=== PATIENT | female | born 1970 | race Caucasian/White ===

== ENCOUNTER 2020-11-18 12:36 | Outpatient (REF) | payer OTHER, SELFPAY ==
--- NOTE | ~2020-11-18 | XR_ITS ---
EXAMINATION: XR HAND, RIGHT XR HAND, LEFT CLINICAL INFORMATION: Heberden's nodes with arthropathy. COMPARISON: None TECHNIQUE: 3 views of each hand. FINDINGS: RIGHT HAND: 3 views of the right hand do not demonstrate any evidence of acute fracture or dislocation. There is some soft tissue swelling about the 5th proximal interphalangeal joint. Joint spaces are maintained. No erosive arthropathy is appreciated. LEFT HAND: 3 views of the left hand do not demonstrate any evidence of acute fracture or dislocation. Mild soft tissue swelling seen about the 2nd and 5th proximal interphalangeal joints. No erosive changes are evident. XR/XR hand LT min 3V IMPRESSION: No significant bony abnormality of the right or left hands. No evidence of erosive arthritides.
--- NOTE | ~2020-11-18 | XR_ITS ---
EXAMINATION: XR HAND, RIGHT XR HAND, LEFT CLINICAL INFORMATION: Heberden's nodes with arthropathy. COMPARISON: None TECHNIQUE: 3 views of each hand. FINDINGS: RIGHT HAND: 3 views of the right hand do not demonstrate any evidence of acute fracture or dislocation. There is some soft tissue swelling about the 5th proximal interphalangeal joint. Joint spaces are maintained. No erosive arthropathy is appreciated. LEFT HAND: 3 views of the left hand do not demonstrate any evidence of acute fracture or dislocation. Mild soft tissue swelling seen about the 2nd and 5th proximal interphalangeal joints. No erosive changes are evident. XR/XR hand RT min 3V IMPRESSION: No significant bony abnormality of the right or left hands. No evidence of erosive arthritides.
== END 2020-11-18 12:37 | disposition home or self-care (01) ==
LOC: HO.XRAY 12:36
PROVIDERS: PCP Nurse Practitioner; Visit Provider Nurse Practitioner
DX: M15.1 Heberden's nodes (with arthropathy) (principal)
CPT/HCPCS: 73130

== ENCOUNTER 2021-01-08 15:21 | Outpatient (REF) | payer OTHER, SELFPAY ==
--- NOTE | ~2021-01-08 | MM_ITS ---
EXAMINATION: MM SCREENING DIGITAL BREAST TOMOSYNTHESIS, BILATERAL CLINICAL INFORMATION: Screening. Asymptomatic. The lifetime risk of breast cancer based on the Tyrer-Cuzick Model is 6.0%. COMPARISON: Mammography: 07/10/2018 and studies dating back to 09/27/2010 TECHNIQUE: Digital breast tomosynthesis is performed in both the craniocaudal and mediolateral oblique views along with computer-aided detection (CAD). Synthesized 2D images are generated from the tomosynthesis. FINDINGS: There are scattered areas of fibroglandular density (ACR BI-RADS breast composition Category b). About the upper outer aspect of the right breast approximately 5 cm nipple there is a 4 x 3 mm well-circumscribed density without calcification or spiculation. About the lateral aspect of the right breast there is a grouping of circumscribed densities approximately 7 cm from the nipple. There is another circumscribed density about the upper outer aspect of the right breast approximately 4 cm from the nipple. There is a stable appearance of the left breast. MM/MM tomosynthesis screening BI IMPRESSION: Right breast densities for which spot compression film and ultrasound is recommended for further evaluation. ASSESSMENT: BI-RADS 0: Incomplete - Need Additional Imaging Evaluation RECOMMENDATION: 1. Additional views of the right breast. 2. Targeted ultrasound if warranted after review of the additional views. 3. Radiology department staff will contact the patient for additional imaging. This patient's information was entered into a reminder system with a target due date for their next mammogram.
== END 2021-01-08 15:22 | disposition home or self-care (01) ==
LOC: HO.MAMMO 15:21
PROVIDERS: PCP Internal Medicine; Visit Provider Internal Medicine
DX: Z12.31 Encounter for screening mammogram for malignant neoplasm of breast (principal)
CPT/HCPCS: 77063; 77067

== ENCOUNTER 2021-01-14 08:18 | Outpatient (REF) | payer OTHER, SELFPAY ==
--- NOTE | ~2021-01-14 | US_ITS ---
EXAMINATION: US DIAGNOSTIC ULTRASOUND BREAST, RIGHT CLINICAL INFORMATION: Right breast densities. COMPARISON: Mammography of same day as well as studies dating back to September 27, 2010. TECHNIQUE: Ultrasound of the breast is performed with real-time capps scale imaging and color Doppler. FINDINGS: Targeted right breast ultrasound demonstrates a grouping of hypoechoic well-circumscribed structures in a region of echogenic parenchyma with the appearance of possible fat necrosis. No distal sound shadowing is appreciated. This is located at approximately the 9-10 o'clock position, 8 cm from the nipple A second well-circumscribed hypoechoic lesion 11 o'clock position, 3 cm from the nipple appears to represent either a vessel or small cyst. A 6-month follow-up mammography and ultrasound are recommended. Results are provided to the patient at time of visit by the technologist. US/US breast RT limited IMPRESSION: Cluster of small circumscribed densities lateral aspect of the right breast has the appearance of fat necrosis. A 6-month diagnostic right breast mammography and ultrasound recommended. ASSESSMENT: BI-RADS 3: Probably Benign. RECOMMENDATION: Diagnostic mammography in 6 months. Diagnostic right breast ultrasound.
--- NOTE | ~2021-01-14 | MM_ITS ---
EXAMINATION: MM DIAGNOSTIC DIGITAL BREAST TOMOSYNTHESIS, RIGHT US RIGHT BREAST ULTRASOUND CLINICAL INFORMATION: Numerous small well-circumscribed densities. COMPARISON: Mammography: 01/08/2021 and studies dating back to 09/27/2010. TECHNIQUE: Digital breast tomosynthesis is performed. 2D images are generated from the tomosynthesis. The following views are obtained: Spot compression craniocaudal and mediolateral oblique projections. FINDINGS: There are scattered areas of fibroglandular density (ACR BI-RADS breast composition Category b). There are again noted to be a grouping of well-circumscribed densities about the upper outer aspect of the right breast with the largest measuring approximately 3 mm in diameter. The second more medial circumscribed density may represent a turn of vessel. Targeted right breast ultrasound demonstrates a grouping of hypoechoic well-circumscribed structures in a region of echogenic parenchyma with the appearance of possible fat necrosis. No distal sound shadowing is appreciated. This is located at approximately the 9-10 o'clock position, 8 cm from the nipple A second well-circumscribed hypoechoic lesion 11 o'clock position, 3 cm from the nipple appears to represent either a vessel or small cyst. A 6-month follow-up mammography and ultrasound are recommended. Results are provided to the patient at time of visit by the technologist. MM/MM tomosynthesis added views R IMPRESSION: Cluster of small circumscribed densities lateral aspect of the right breast has the appearance of fat necrosis. A 6-month diagnostic right breast mammography and ultrasound recommended. ASSESSMENT: BI-RADS 3: Probably Benign. RECOMMENDATION: Diagnostic mammography in 6 months. Diagnostic right breast ultrasound. This patient's information was entered into a reminder system with a target due date for their next mammogram.
== END 2021-01-14 08:19 | disposition home or self-care (01) ==
LOC: HO.MAMMO 08:18
PROVIDERS: Visit Provider Nurse Practitioner
DX: R92.2 Inconclusive mammogram (principal)
CPT/HCPCS: 76642; 77061; 77065

== ENCOUNTER 2021-07-14 12:45 | Outpatient (REF) | payer OTHER, SELFPAY ==
--- NOTE | ~2021-07-14 | MM_ITS ---
EXAMINATION: MM DIAGNOSTIC DIGITAL BREAST TOMOSYNTHESIS, RIGHT US TARGETED BREAST, RIGHT CLINICAL INFORMATION: Six-month follow up right breast densities possibly representing fat necrosis. The lifetime risk of breast cancer based on the Tyrer-Cuzick Model is 6%. COMPARISON: Mammography: 01/14/2021 and studies dating back to 09/27/2010. TECHNIQUE: Digital breast tomosynthesis is performed in both the craniocaudal and mediolateral oblique views along with computer-aided detection (CAD). Synthesized 2D images are generated from the tomosynthesis. Targeted right breast ultrasound upper outer aspect of the right breast. FINDINGS: There are scattered areas of fibroglandular density (ACR BI-RADS breast composition Category b). A few small circumscribed densities are again seen about the upper outer aspect of the right breast but which are less prominent than on prior study and largest one measuring 3 mm in diameter. No new abnormal dominant masses identified and no suspicious grouping of calcifications is seen. ULTRASOUND: Targeted right breast ultrasound was then performed in the upper outer quadrant and at the 8 cm from the nipple at 10 o'clock position. Approximately 3 cm from the nipple, there are 3 small lesions with hypoechoic central regions and hyperechoic outer rims. These appear similar to previous study without evidence of enlargement or aggressive change. No internal vascularity is present. These have the appearance of fat necrosis. Results are discussed with the patient at time of visit. MM/MM tomosynthesis diagnostic RT IMPRESSION: There are no significant changes from prior study. ASSESSMENT: BI-RADS 2: Benign. RECOMMENDATION: Routine annual mammography screening due in 12 months. This patient's information was entered into a reminder system with a target due date for their next mammogram.
--- NOTE | ~2021-07-14 | US_ITS ---
EXAMINATION: US DIAGNOSTIC ULTRASOUND BREAST, RIGHT CLINICAL INFORMATION: Six-month follow-up of a few small densities about the upper outer aspect of the right breast.. COMPARISON: Mammography of same day and mammography dating back to study of 09/27/2010. TECHNIQUE: Ultrasound of the breast is performed with real-time capps scale imaging and color Doppler. FINDINGS: Targeted right breast ultrasound was then performed in the upper outer quadrant and at the 9 o'clock position 8 cm from nipple and 10 o'clock position approximately 3 cm from nipple there are 3 small lesions with hypoechoic central regions and hyperechoic outer rims. These appear similar to previous study without evidence of enlargement or aggressive change. No internal vascularity is present. These have the appearance of fat necrosis. US/US breast RT limited IMPRESSION: There are no significant changes from prior study. ASSESSMENT: BI-RADS 2: Benign RECOMMENDATION: Routine annual mammography screening due in 12 months. Results were discussed with the patient at time of visit.
== END 2021-07-14 12:46 | disposition home or self-care (01) ==
LOC: HO.MAMMO 12:45
PROVIDERS: PCP Nurse Practitioner; Visit Provider Nurse Practitioner
DX: R92.2 Inconclusive mammogram (principal)
CPT/HCPCS: 76642; 77061; 77065

== ENCOUNTER → 2022-06-02 13:04 | Outpatient (BNVA) | payer OTHER, SELFPAY | PROVIDERS: PCP Nurse Practitioner; Visit Provider Surgery | DX: Z13.89 Encounter for screening for other disorder (principal) ==

== ENCOUNTER 2022-07-07 10:40 | Outpatient (REF) | payer OTHER, SELFPAY ==
[2022-07-07 11:05] VITALS: BMI 26.4
[2022-07-07 11:06] VITALS: BP 142/98; PULSE 83; RESP 16; TEMP 36.5; O2SAT 97
[2022-07-07 11:40] VITALS: BP 132/95; PULSE 86; RESP 16; O2SAT 97
--- NOTE | 2022-07-07 11:46 | W.PM.OPN ---
Operative Note Operative Note Date of Service: 07/07/22 Narrative: Preoperative diagnosis: sebaceous cyst left back Postoperative diagnosis:same Procedure: Excision of sebaceous cyst Surgeon:? Senthil Duvall MD Detective Bureau Chief: none Anesthesia:Local Indications for procedure:? 52-year-old female patient with a previous history of an infected sebaceous cyst of the back status post incision and drainage returning today for excision. Operative findings: sebaceous cyst of the midback approximately 2 cm diameter. Specimen:? Sebaceous cyst of mid Estimated blood loss: less than 2 mL Complications: none Procedure details: patient was brought to the minor surgery suite and placed in a prone position.? The site of surgery confirmed by the patient in the lower mid back.? After assuring informed consent, the skin was prepped with Betadine and draped in a sterile fashion.? Local anesthesia was then infiltrated around the lesion.? An elliptical incision oriented transversely was then created around the cyst including the previous incision and drainage site.? Incision was carried out through subcutaneous tissue and around the cyst wall.? The lesion was passed off the table and sent to pathology for further examination.? Hemostasis was assured using light pressure.? Deep subcutaneous tissue and dermis were then reapproximated using interrupted 3-0 Polysorb sutures.? Skin was closed using interrupted 3-0 Prolene sutures.? Sterile dressings consisting of 3 x 3 gauze and Tegaderm were then applied.? The patient tolerated the procedure well.? She was discharged to home in stable condition.
== END 2022-07-07 10:41 | disposition home or self-care (01) ==
LOC: HO.MS 10:40
PROVIDERS: Visit Provider Surgery
PROC: (CPT 11402; principal; 2022-07-07 11:20)
DX: L72.0 Epidermal cyst (principal)
CPT/HCPCS: 11402; 88304

== ENCOUNTER → 2022-07-15 10:46 | Outpatient (BNVA) | payer OTHER, SELFPAY | PROVIDERS: Visit Provider Surgery | DX: Z13.89 Encounter for screening for other disorder (principal) ==

== ENCOUNTER 2024-09-12 12:38 | Outpatient (REF) | payer BC, SELFPAY ==
--- OUTSIDE RECORDS SUMMARY | 2024-09-12 12:40 | XMS_ITS | Encounter Summary ---
Author Organization [employer] Address [address] [place] [id number] Care Team Providers Care Cable Splicer Assistant Name Role Phone Reyna Garrido MD Primary Care Pro vider Reason for Visit * Reason Onset Date Comments Appointment Request 02/16/2024 Encounter Details Date Type Department Care Team ([facility] Contact Info) Description 02/16/2024 Telephone [facility] [address] [place], [place] [phone] Reyna Garrido MD [address] [place], [place] [phone] Appointment Request Social History Tobacco Use Types Packs/Day Years Used Date Smoking Tobacco: Never Smokeless Tobacco: Never Housing Stability Answer Date Recorded What is your housing situation today? I have burak crenshaw 02/01/[address] you li ve. Do you have problems with any of the following? None of the above 02/01/2024 Food Insecurity Answer Date Recorded Within the past 12 months, y ou worried that your food would run out before you got money to buy more: Never True 02/01/2024 Within the past 12 months,th e food you bought just didn't last and you didn't have enough money to get more: Never True 01/2024 Transportation Answer Date Recorded In the past 12 months, has l ack of transportation kept you from medical appts, meetings, work or from getting things needed for daily living? No 02/01/2024 Utilities Answer Date Recorded In the past 12 months, has t he electric, gas, oil or water company threatened to shut off services in your home? No 02/01/2024 Internet Access Answer Date Recorded Internet Access Q1 Yes 02/01/2024 Internet Access Q2 Not on file 02/01/2024 Comments Unknown Sex and Gender Information Value Date Recorded Sex Assigned at Female 02/21/2022 10:15 AM EDT Legal Sex Female 10:15 AM EDT Gender Identity Female 02/21/2022 10:15 AM EDT Sexual Orientation Straight 02/21/2022 10 :15 AM EDT documented as of this encounter Miscellaneous Notes * Telephone Encounter - Иван Rosales - 02/16/2024 1:00 PM EDT Tc from pt requesting transfer pt appt but contract technical writer found no availability. Pt stated she has waited over 9 months for initial TP but due to insurance she wasn't able to attend. Please contact pt at [phone]. (Korean Speaker) documented in this encounter Plan of Treatment Upcoming Encounters Date Type Department Care Team (Late st Contact Info) Description 09/19/2024 9:30 AM EDT Procedure Visit [facility] [address] [place] [phone] Mary Shannon CNM [address] [place] [address] 10/17/2024 9:30 AM EDT Office Visit [facility] [address] [place] [phone] Reyna Garrido MD [address] [place] [phone] 03/27/2025 1:00 PM EST Office Visit [facility] ADULT DENTAL [address] [place] [phone] Ginette Florez documented as of this encounter Visit Diagnoses Not on filedocumented in this encounter Care Teams Cable Splicer Assistant Relationship Specialty Start Date End Date Reyna Garrido MD [address] [place] [phone] PCP - General Internal Medicine 12/12/22 documented as of this encounter
--- OUTSIDE RECORDS SUMMARY | 2024-09-12 12:40 | XMS_ITS | Encounter Summary ---
Author Organization [employer] Address [address] [place] [phone] Care Team Providers Care Auto Suspension And Steering Mechanic Name Role Phone Reyna Garrido MD Primary Care Pro vider Reason for Visit * Reason Onset Date Comments Medication Reaction 02/29/2024 Encounter Details Date Type Department Care Team ([facility] st Contact Info) Description 02/29/2024 Telephone [facility] MEDICINE [address] [place], [place] [phone] Reyna Garrido MD [address] [place], [place] [phone] Medication Reaction Social History Tobacco Use Types Packs/Day Years [...] encounter Miscellaneous Notes * Telephone Encounter - Adeline Lyles LPN - 02/29/2024 1:25 PM EST Medication pended to PCP. * Telephone Encounter - eCcil Finney - 02/29/2024 1:17 PM EST TC from pt requesting medication refill. Medications needing refill : lisinopril 10 MG tablet To be sent to: [facility] documented in this encounter Plan of Treatment Upcoming Encounters Date Type Department Care Team (Late st Contact Info) Description 09/19/2024 9:30 AM EDT Procedure Visit [facility] MEDICINE [address] [place] [phone] Mary Shannon CNM [address] [place] [address] 10/17/2024 9:30 AM EDT Office Visit [facility] MEDICINE [address] [place] [phone] Reyna Garrido MD [address] [place], [place] [phone] 03/27/2025 1:00 PM EST Office Visit [facility] ADULT DENTAL [address] [place] [phone] Ginette Florez documented as of this encounter Visit Diagnoses Not on filedocumented in this encounter Care Teams Auto Suspension And Steering Mechanic Relationship Specialty Start Date End Date Reyna Garrido MD [address] [place] [phone] PCP - General Internal Medicine 12/12/22 documented as of this encounter
--- OUTSIDE RECORDS SUMMARY | 2024-09-12 12:40 | XMS_ITS | Encounter Summary ---
Author Organization [employer] Address [address] [facility] [address] [place] [address] Care Team Providers Care Broadcast Chief Engineer Name Role Phone Reyna Garrido MD Primary Care Pro vider Reason for Visit * Reason Comments Med Refill Encounter Details Date Type Department Care Team (Late st Contact Info) Description 09/09/2024 Refill [facility] MEDICINE [address] [place], [place] [phone] Adeline Lea, [address] [place], [place] [phone] Social History Tobacco Use Types Packs/Day Years Used Date Smoking Tobacco: Never Smokeless Tobacco: Never Alcohol Use Standard Drinks/Week Comments Yes 0 (1 standard drink = 0.6 oz pur e alcohol) social Depression Answer Date Recorded Patient Health Questionnaire-9 Score 0 08/29/2024 Patient Health Questionnaire-9 Score 0 08/29/2024 Last PHQ-9: Questionnaire Data Not on file 0 08/29/2024 Housing Stability Answer Date Recorded What is [...] off services in your home? No 02/01/2024 Depression Answer Date Recorded Patient Health Questionnaire-2 Score 0 08/29/2024 Internet Access Answer Date Recorded Internet Access Q1 Yes 02/01/2024 Internet Access Q2 Not on file 02/01/2024 Comments Unknown Sex and Gender Information Value Date Recorded Sex Assigned at Female 02/21/2022 10:15 AM EDT Legal Sex Female 10:15 AM EDT Gender Identity Female 02/21/2022 10:15 AM EDT Sexual Orientation Straight 02/21/2022 10 :15 AM EDT documented as of this encounter Plan of Treatment Upcoming Encounters Date Type Department Care Team (Late st Contact Info) Description 09/19/2024 9:30 AM EDT Procedure Visit [facility] [address] [place] [phone] Mary Shannon CNM [address] [place] [phone] 10/17/2024 9:30 AM EDT Office Visit [facility] [address] [place] [phone] Reyna Garrido MD [address] [place] [phone] 03/27/2025 1:00 PM EST Office Visit [facility] ADULT DENTAL [address] [place] [phone] Ginette Floerz documented as of this encounter Visit Diagnoses Not on filedocumented in this encounter Additional Health Concerns Assessment Noted Time PHQ-9 Depression Total Score: 0 08/30/19 25 2:19 PM EDT documented as of this encounter Care Teams Broadcast Chief Engineer Relationship Specialty Start Date End Date Reyna Garrido MD [address] [place] [phone] PCP - General Internal Medicine 8/21/23 documented as of this encounter
--- OUTSIDE RECORDS SUMMARY | 2024-09-12 12:40 | XMS_ITS | Encounter Summary ---
Author Organization [employer] Address [address] [facility] [address] [place] [address] Care Team Providers Care Vendor Management Associate Name Role Phone Reyna Garrido MD Primary Care Pro vider Reason for Visit * Reason Onset Date Comments cancelled appt OS 01/29/2024 Encounter Details Date Type Department Care Team ([facility] st Contact Info) Description 01/29/2024 Telephone [facility] ADULT DENTAL [address] [place] [phone] Mir Harris, DMD [address] [place] [address] cancelled appt OS Social History Tobacco Use Types Packs/Day Years [...] encounter Miscellaneous Notes * Telephone Encounter - Sonia Ravinder - 01/29/2024 10:56 AM EDT Patient called in stating that she received a message that her appt for 10:[address] Harris has been cancelled. She is looking for clarification on cancellation of visit and if it will be need to berescheduled. Please reach out to patient DR documented in this encounter Plan of Treatment Upcoming Encounters Date Type Department Care Team (Late st Contact Info) Description 09/19/2024 9:30 AM EDT Procedure Visit [facility] MEDICINE [address] [place] [phone] Mary Shannon CNM [address] [place] [phone] 10/17/2024 9:30 AM EDT Office Visit [facility] MEDICINE [address] [place] [phone] Reyna Garrido MD [address] [place] [phone] 03/27/2025 1:00 PM EST Office Visit [facility] ADULT DENTAL [address] [place] [phone] Ginette Florez documented as of this encounter Visit Diagnoses Not on filedocumented in this encounter Care Teams Vendor Management Associate Relationship Specialty Start Date End Date Reyna Garrido MD [address] [place] [phone] PCP - General Internal Medicine 12/12/22 documented as of this encounter
--- OUTSIDE RECORDS SUMMARY | 2024-09-12 12:40 | XMS_ITS | Clinical Summary ---
Author Organization [employer] Address [address] [facility] 7[address] [place] [address] Care Team Providers Care Lidder Name Role Phone Reyna Garrido MD Primary Care Pro vider Allergies Active Allergy Reactions Criticality Noted Date Comments Mcgill Itching High 11/18/2020 Medications biotin 1 MG capsule Take by mouth. Active fexofenadine ODT (Lesa ODT) 30 MG disintegrating tablet Take 30 mg by mouth Once per day. Active lisinopril 10 MG tablet Take 1 tablet (10 mg) by mouth in the morning. 90 tablet 08/30/19 Active lisinopril 10 MG tablet TAKE 1 TABLET BY MOUTH EVERY MORNING 90 tablet 06/07/19 25 025 Discontinued(Re order (will not trigger notification to Pharmacy)) acetaminophen (Tylenol 8 Hour) 650 MG ER tabletIndications :Dental abscess Take 1 tablet (650 mg) by mouth every 8 (eight) hours if needed for mild pain for up to 30 doses. Do not crush, chew, or split. 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 Resolved Problems Problem Noted Date Diagnosed Date Resolved Date Dental abscess 06/19/2024 08/30/2024 Encounters Date Type Department Care Team Description 09/09/2024 Refill [facility] [address] [place] [address] VenuAdeline 08/29/2024 1:45 PM EDT Office Visit [facility] [address] [place] [address] Reyna Garrido MD Health care maintenance (Primary Dx); Dietary counseling; Exercise counseling; Annual physical exam; Breast cancer screening by mammogram; Colon cancer screening; Hypertension, unspecified type; PVC (premature ventricular contraction); Overweight (BMI 25.0-29.9); Essential hypertension; Abnormal EKG 08/29/2024 Travel 08/28/[address] [address] Reyna Garrido MD Chart Prep 08/15/2024 Patient Outreach [facility] [address] [place], [place] [phone] Reyna Garrido MD Pre-visit Planning (SDOH unable to reach [facility] ) 06/19/2024 9:00 AM EST Office Visit [facility] ADULT DENTAL [address] [place] [phone] Michael Moreland DDS Dental abscess (Primary Dx) from Last 3 Months Immunizations Immunization Administration Dates Next Due Tdap 11/18/2020 Zoster, Recombinant 11/18/2020 Family History Medical History Relation Name Comments bladder ca Brother valvular cardiopathy Brother Heart attack Father Colon cancer Mother Liver cancer Sister Relation Name Status Comments Brother Father Mother Sister Social History Tobacco Use Types Packs/Day Years Used Date Smoking Tobacco: Never Smokeless Tobacco: Never Tobacco Cessation:Counseling Given: Not Answered Alcohol Use Standard Drinks/Week Comments Yes 0 [...] Orientation Straight 02/21/2022 10 :15 AM EDT Last Filed Vital Signs Vital Sign Reading Time Taken Comments Blood Pressure 148/82 08/29/2024 2:17 PM EDT Pulse 83 08/29/2024 2:17 PM EDT Temperature 37.2 ??C (98.9 ??F) 08/29/2024 2:17 PM ED T Respiratory Rate 18 08/29/2024 2:17 PM EDT Oxygen Saturation 96% 08/29/2024 2:17 PM EDT Inhaled Oxygen Concentration - - Weight 71.7 kg (158 lb) 08/29/2024 2:17 PM EDT Height 162.6 cm (5' 4 ) 08/29/2024 2:17 PM EDT Body Mass Index 27.12 08/29/2024 2:17 PM EDT Plan of Treatment Upcoming Encounters Date Type Department Care Team (Late st Contact Info) Description 09/19/2024 9:30 AM EDT Procedure Visit [facility] [address] [place] [address] Mary Shannon CNM [address] [place] [address] 10/17/2024 9:30 AM EDT Office Visit [facility] [address] [place] [phone] Reyna Garrido MD [address] [place], [place] [phone] 03/27/2025 1:00 PM EST Office Visit [facility] ADULT DENTAL [address], [place] [phone] Ginette Florez Health Maintenance Due Date Last Done Comments CT Colonography 1970 Colonoscopy 1970 Colorectal Cancer Screening 1970 FIT DNA/Cologuard 1970 FIT 1970 FOBT 1970 Sigmoidoscopy 1970 Hepatitis B Vaccines (1 of 3 - 19+ 3-dose series) 1989 Pneumococcal Vaccine: 50+ Years (1 of 1 - PCV) 2020 Zoster Vaccines (2 of 2) 01/13/2021 11/18/2020 Mammogram 07/15/2023 07/14/2021, 01/14/2021, 07/12/2018 COVID-19 Vaccine (3 - 2023-2 5 season) 2023 09/22/2020, 08/24/2020 Influenza Vaccine (#1) 2023 Dental Oral Exam 08/20/2024 02/19/2024 Dental Prophylaxis 09/02/2024 03/04/2024 Pap Smear 10/28/2024 10/28/2021 SDOH Screening 01/31/2025 02/01/2024 Dental X-Ray: Bitewings 02/19/2025 02/19/20 24, 01/12/2015 Alcohol/Substance Use Screening 08/29/2025 08/29/2024 Depression Screening 08/29/2025 08/29/2024, 08/29/2024 Disability Screening 08/29/2025 08/29/2024 Tobacco Screening 08/29/2025 08/29/2024 Lipid Panel 11/18/2025 11/18/2020 Cervical Cancer Screening 10/28/2026 HPV/Cotest 10/28/2026 10/28/2021 Dental X-Ray: Full Mouth 02/19/2027 02/19/2024 DTaP/Tdap/Td Vaccines (2 - T d or Tdap) 11/18/2030 11/18/2020 RSV Patients and Patients Aged 60 years or older (1 - 1-dose 75+ series) 2045 HIV Screening Completed 11/18/2020 Hepatitis C Screening Completed 11/18/2020 HIB Vaccines Aged Out No longer eligi ble based on patient's age to complete this topic HPV Vaccines Aged Out No longer eligi ble based on patient's age to complete this topic Hepatitis A Vaccines Aged Out No long er eligible based on patient's age to complete this topic IPV Vaccines Aged Out No longer eligi ble based on patient's age to complete this topic Meningococcal B Vaccine Aged Out No l onger eligible based on patient's age to complete this topic Meningococcal Vaccine Aged Out No shanna frances eligible based on patient's age to complete this topic RSV under 20 months Aged Out No longe r eligible based on patient's age to complete this topic Rotavirus Vaccines Aged Out No longer eligible based on patient's age to complete this topic Procedures Procedure Name Priority Date/Time Associated Diagnosis Comments 14 EXTRACTION, ERUPTED TOOTH OR EXPOSED ROOT (ELEVATION/FORCEPS REMOVAL) Routine 06/19/2024 9:00 AM EST PROPHYLAXIS - ADULT Routine 03/04/2024 3 :00 PM EST Dental plaque Dental calculus INTRAORAL - COMPLETE SERIES OF RADIOGRAPHIC IMAGES Routine 02/19/2024 1:30 PM EDT Encounter for dental examination Need for full coverage dental crown COMPREHENSIVE ORAL EVALUATION - NEW OR ESTABLISHED PATIENT Routine 02/19/2024 1:30 PM EDT Encounter for dental examination Need for full coverage dental crown THINPREP IMAGING PAP AND HPV MRNA E6/E7, WITH CT/NG, TRICHOMONAS Routine 10/28/2021 2:27 PM EDT MAMMOGRAM GENERIC Routine 07/14/2021 1:0 6 PM EDT ZZZ HISTORICAL HEPATITIS C AB W/REFL TO HCV RNA, QN, PCR Routine 11/18/2020 11:51 AM EDT HIV 1/2 ANTIGEN/ANTIBODY, FOURTH GENERATION W/RFL Routine 11/18/2020 11:51 AM EDT LIPID PANEL, STANDARD Routine 11/18/2020 11:51 AM EDT from Last 3 Months or Most Recently Relevant to Health Maintenance Results * (ABNORMAL) THINPREP TIS PAP AND HPV mRNA E6/E7, CT/NG, TRICH (10/28/2021 2:27 PM EDT) Chlamydia trachomatis RNA, TMA, Urogenital NOT DETECTED NOT DETECTED [facility] Clinical Information: None given [facility] COMMENT SEE COMMENT [facility] Comment: The analytical performance characteristics of this assay, when used to test SurePath(TM) specimens have been determined by [facility]. The modifications have not been cleared or approved by the FDA. This assay has been validated pursuant to the CLIA regulations and is used for clinical purposes. ?? For additional information, please refer to https://education.SayNow/faq/OJK096 (This link is being provided for information/ educational purposes only.) ?? COMMENT SEE COMMENT [facility] Comment: EXPLANATORY NOTE: ? The Pap is a screening test for cervical cancer. It is ?? not a diagnostic test and is subject to false negative ?? and false positive results. It is most reliable when a ?? satisfactory sample, regularly obtained, is submitted ?? with relevant clinical findings and history, and when ?? the Pap result is evaluated along with historic and ?? current clinical information. ?? COMMENT: This Pap test has been evaluated with computer assisted technology. [employer] SYSTEM Bed Spring Maker: SEE COMMENT [facility] Comment: WAC, CT(ASCP) CT screening location: [address] ??[address] HPV nRNA E6/E7 Detected(A) Not Detected [facility] Comment: Methodology: Taper/Finisher-Mediated Amplification This assay detects E6/E7 viral messenger RNA (mRNA) from 14 high-risk HPV types (16,18,31,33,35,39,45,51,52,56,58,59,66,68). ? Cervical sources are required for HPV testing. If a vaginal source from a patient who has had a total hysterectomy with removal of cervix was ?? submitted, please contact the testing laboratory for alternative testing options. ?? For additional information, please refer to http://[employer]SayNow/faq/DEZ048g8 (This link if provided for information/ educational purposes only.) Interpretation/Re sult: Negative for intraepithelial lesion or malignancy. [facility] LMP: NONE GIVEN [facility] Neisseria gonorrhoeae RNA, TMA, Urogenital NOT DETECTED NOT DETECTED [facility] Prev. BX: NONE GIVEN [facility] Prev. PAP: NONE GIVEN [facility] Review Bed Spring Maker: SEE COMMENT [facility] Comment: DCR, CT(ASCP) CT screening location: [address] ??[id number] SOURCE: None given [facility] Statement Of Adequacy: SEE COMMENT [facility] Comment: Satisfactory for evaluation. Endocervical/transformation zone component present. Age and/or menstrual status not provided Trichomonas vaginalis, QL, TMA, PAP Vial NOT DETECTED NOT DETECTED [facility] Comment: The analytical performance characteristics of this assay have been determined by [facility]. The modifications have not been cleared or approved by the FDA. This assay has been validated pursuant to the CLIA regulations and is used for clinical purposes. ?? For additional information, please refer to http://[employer]SayNow/ faq/Trichomonastma (This link is being provided for information/ educational purposes only.) ?? 10/28/2021 2:27 PM EDT us Arminda Preciado NP LAB PATHOLOGY ORDERABLES Final Result [facility] [address] * Mammography Report 1 (07/14/2021 1:06 PM EDT) Anatomical Region Laterality Modality Breast Bilateral Mammography 07/14/2021 1:06 PM EDT Narrative 07/14/2021 7:27 PM EDT Refer to the Notes tab for result details [facility] Procedure: Mammography Report 1 Procedure Note Provider, MD Christian - 07/17/2022 Refer to the Notes tab for result details [facility] Procedure: Mammography Report 1 Arminda Preciado POLITICAL GEOGRAPHER IMG BI PROCEDURES Final Result * HEPATITIS C AB W/REFL TO HCV RNA, QN, PCR (11/18/2020 11:51 AM EDT) HEPATITIS C ANTIBODY NON-REACT BRIANNE NON-REACT BRIANNE [facility] INDEX 0.01 <1.00 [facility] Comment: ?? HCV antibody was non-reactive. There is no laboratory ?? evidence of HCV infection. ?? In most cases, no further action is required. However, if recent HCV exposure is suspected, a test for HCV RNA (test code 24790) is suggested. ?? For additional information please refer to http://[employer]SayNow/faq/GLR03e9 (This link is being provided for informational/ educational purposes only.) ?? 11/18/2020 11:5 1 AM EDT Arminda Preciado NP HISTORICAL/NON ORDERABLE LABS F inal Result [facility] [address] * HIV 1/2 ANTIGEN/ANTIBODY,FOURTH GENERATION W/RFL (11/18/2020 11:51 AM EDT) HIV-1/2 ANTIGEN AND ANTIBODIES, 4TH GENERATION W/ REFLEX NON-REACT BRIANNE NON-REACT BRIANNE [facility] Comment: HIV-1 antigen and HIV-1/HIV-2 antibodies were not detected. There is no laboratory evidence of HIV infection. ?? PLEASE NOTE: This information has been disclosed to you from records whose confidentiality may be protected by state law. ??If your state requires such protection, then the state law prohibits you from making any further disclosure of the information without the specific written consent of the person to whom it pertains, or as otherwise permitted by law. A general authorization for the release of medical or other information is NOT sufficient for this purpose. ? For additional information please refer to http://[employer]SayNow/faq/UWN265 (This link is being provided for informational/ educational purposes only.) ? The performance of this assay has not been clinically validated in patients less than 2 years old. ?? 11/18/2020 11:5 1 AM EDT us Arminda Preciado POLITICAL GEOGRAPHER LAB BLOOD ORDERABLES Final Resu lt Performing Organization Address City/[facility]/ZIP Co de Phone Number [facility] [address] [place] [address], * (ABNORMAL) LIPID PANEL, STANDARD (11/18/2020 11:51 AM EDT) Chol/HDLC Ratio 2.8 <5.0 (calc) [facility] Cholesterol, Total 199 <200 mg/dL [facility] HDL Cholesterol 70 > OR = 50 mg/dL [facility] LDL Cholesterol 111(H) mg/dL (calc) [facility] Comment: Reference range: <100 ?? Desirable range <100 mg/dL for primary prevention; ?? <70 mg/dL for patients with CHD or diabetic patients ?? with > or = 2 CHD risk factors. ?? LDL-C is now calculated using the Mando-Franz ?? calculation, which is a validated novel method providing ?? better accuracy than the Friedewald equation in the ?? estimation of LDL-C. ?? Mando BELLE et al. MARYSE. 2013;310(19): 0238-6662 ?? (http://education.Wis.dm.Nordic Neurostim/faq/FKY291) Non-HDL Cholesterol 129 <130 mg/dL (calc) [facility] Comment: For patients with diabetes plus 1 major ASCVD risk ?? factor, treating to a non-HDL-C goal of <100 mg/dL ?? (LDL-C of <70 mg/dL) is considered a therapeutic ?? option. Triglycerides 90 <150 mg/dL [facility] 11/18/2020 11:5 1 AM EDT us Arminda Preciado POLITICAL GEOGRAPHER LAB BLOOD ORDERABLES Final Resu lt Performing Organization Address City/[facility]/ZIP Co de Phone Number [facility] [address] [place] [address], [place] from Last 3 Months or Most Recently Relevant to Health Maintenance Insurance BCBS * Guarantor: Dolly Urena Account Type Relation to Patient Date of Phone Billing Address Personal/[place] [address] Care Teams Lidder Relationship Specialty Start Date End Date Reyna Garrido MD [address] [place] [phone] PCP - General Internal Medicine 12/12/22
== END 2024-09-12 12:39 | disposition home or self-care (01) ==
LOC: HO.MAMMO 12:38
PROVIDERS: PCP Student in an Organized Health Care Education/Training Program; Visit Provider Student in an Organized Health Care Education/Training Program
DX: Z12.31 Encounter for screening mammogram for malignant neoplasm of breast (principal)
CPT/HCPCS: 77063; 77067

== ENCOUNTER → 2024-09-12 13:00 | Outpatient (BNV) | payer BC, SELFPAY | PROVIDERS: PCP Student in an Organized Health Care Education/Training Program; Visit Provider Internal Medicine | DX: Z12.31 Encounter for screening mammogram for malignant neoplasm of breast (principal) | CPT/HCPCS: 77063; 77067 ==

== ENCOUNTER 2024-10-15 13:02 | Outpatient (REF) | payer BC, SELFPAY ==
[2024-10-15 16:18] LABS: Hematocrit 45.1 % (37.0-47.0); Hemoglobin 14.7 g/dl (12.0-16.0); Mean Corpuscular HGB Conc 32.6 g/dl (31.0-35.0); Mean Corpuscular Hemoglobin 29.8 pg (27.0-33.0); Mean Corpuscular Volume 91.3 fL (80.0-98.0); Mean Platelet Volume 10.9 fL (9.4-12.3); Platelet Count 264 X10*3/uL (160-400); Red Blood Count 4.94 X10*6/uL (4.20-5.50); Red Cell Distribution Width 11.9 % (11.0-16.0); White Blood Count 7.9 X10*3/uL (4.8-10.8)
[2024-10-15 16:29] LABS: Estimated Average Glucose 117 mg/dL; Hemoglobin A1C 146.4265 umol/L; Hemoglobin A1c % 5.7 % (<6.0); Total Hemoglobin (HGBA1C) 3803.5167 umol/L
[2024-10-15 16:39] LABS: Alanine Aminotransferase 35 U/L (0-31); Albumin Level 4.6 g/dL (3.5-5.0); Alkaline Phosphatase 57 U/L (39-117); Anion Gap 15 (12-20); Aspartate Amino Transferase 33 U/L (5-31); Bilirubin Total 0.6 mg/dL (0.0-1.0); Blood Urea Nitrogen 16 mg/dL (9-16); Calcium 10.5 mg/dL (8.4-10.2); Carbon Dioxide 26 mmol/L (22-29); Chloride 103 mmol/L (96-108); Cholesterol 216 mg/dL (<200); Estimated Glomerular Filt Rate > 60; Glucose Random 83 mg/dL (60-115); HDL Cholesterol 62 mg/dL (>40); LDL Cholesterol Calculated 140 mg/dL (<100); Potassium 3.7 mmol/L (3.3-5.1); Sodium 140 mmol/L (135-145); Total Protein 7.4 g/dL (6.5-8.0); Triglycerides 70 mg/dL (<150)
[2024-10-15 16:47] LABS: TSH reflex Free T4 1.16 uIU/mL (0.32-4.0)
[2024-10-15 17:16] LABS: Creatinine Urine 125.01 mg/dL; Microalbum/Creatinine Ratio Ur 9.5 ug/mg cr (<30)
[2024-10-16 08:16] LABS: HBS Num1 0.37 mIU/mL (0-7.99); HBc Num1 0.35 S/CO (0.00-0.79); HBsAGNum1 0.45 S/CO (0.00-0.99); HIV AB/AG Nonreactive (Nonreactive); HIV Num 1 0.07 S/CO (0.00-0.99); Hepatitis B Core Antibody Nonreactive (Nonreactive); Hepatitis B Surface Antigen Negative (Negative); ~HepC Num1 0.11 S/CO (0.00-0.79); ~Hepatitis B Surface Antibody NONREACTIVE (Nonreactive); ~Hepatitis C Antibody Nonreactive (Nonreactive)
[2024-10-16 08:28] LABS: Syphilis Screen Nonreactive (Nonreactive)
[2024-10-16 12:56] LABS: CT PCR NOT DETECTED (Not Detect.); NG PCR NOT DETECTED (Not Detect.)
== END 2024-10-15 13:03 | disposition home or self-care (01) ==
LOC: HO.HHCL 13:02
PROVIDERS: PCP Student in an Organized Health Care Education/Training Program; Visit Provider Student in an Organized Health Care Education/Training Program
DX: Z00.00 Encounter for general adult medical examination without abnormal findings (principal); Z13.0 Encounter for screening for diseases of the blood and blood-forming organs and certain disorders involving the immune mechanism; Z13.1 Encounter for screening for diabetes mellitus; Z13.220 Encounter for screening for lipoid disorders; Z13.29 Encounter for screening for other suspected endocrine disorder
CPT/HCPCS: 80053; 80061; 82043; 82570; 83036; 84443; 85027; 86704; 86706; 86780; 86803; 87340; 87389; 87491; 87591

== ENCOUNTER 2024-10-15 16:44 | Outpatient (REF) | payer BC, SELFPAY ==
[2024-10-18 15:03] LABS: HPV Genotype 16 Negative (Negative); HPV Genotype 18 Negative (Negative); HPV High Risk Negative (Negative)
== END 2024-10-15 16:45 | disposition home or self-care (01) ==
LOC: HO.HHCLNP 16:44
PROVIDERS: Visit Provider Advanced Practice Midwife
DX: Z12.4 Encounter for screening for malignant neoplasm of cervix (principal); Z11.51 Encounter for screening for human papillomavirus (HPV)
CPT/HCPCS: 87626; 88175

== ENCOUNTER 2024-12-10 10:15 | Outpatient (REF) | payer BC, SELFPAY ==
--- OUTSIDE RECORDS SUMMARY | 2024-12-10 17:54 | XMS_ITS | Encounter Summary ---
Author Organization [employer] Address [address] [place] [address] 7 [place] [address] Care Team Providers Care Agricultural Extension Officer Name Role Phone Reyna Garrido MD Primary Care Pro vider Encounter Details Date Type Department Care Team (Latest Contact Info) Description 10/15/2024 Results Follow-Up [facility] [address] [place] [phone] Reyna Garrido MD [address] [place] [address] Albumin, Random Urine W/Creatinine, CBC, Comprehensive Metabolic Panel, Additional followed-up results: 3 Social History Tobacco Use Types Packs/Day Years [...] Access Q2 Not on file 02/01/2024 Comments No Sex and Gender Information Value Date Recorded Sex Assigned at Female 02/21/2022 10:15 AM EDT Legal Sex Female 10:15 AM EDT Gender Identity Female 02/21/2022 10:15 AM EDT Sexual Orientation Straight 02/21/2022 10 :15 AM EDT documented as of this encounter Miscellaneous Notes * Result Encounter Note - Reyna Chavarria MD - 10/15/2024 8:42 PM EDT Please call patient to advise to come to already scheduled apt with me to go over abnormal labs Thanks documented in this encounter Plan of Treatment Upcoming Encounters Date Type Department Care Team (Late st Contact Info) Description 03/27/2025 1:00 PM EST Office Visit [facility] [address] [place] [address] Ginette Florez documented as of this encounter Visit Diagnoses Not on filedocumented in this encounter Additional Health Concerns Assessment Noted Time PHQ-9 Depression Total Score: 0 08/30/19 25 2:19 PM EDT documented as of this encounter Care Teams Agricultural Extension Officer Relationship Specialty Start Date End Date Reyna Garrido MD [address] [place] [address] PCP - General Internal Medicine 12/12/22 documented as of this encounter
== END 2024-12-10 10:16 | disposition home or self-care (01) ==
LOC: HO.HHCLNP 10:15
PROVIDERS: Visit Provider Internal Medicine
DX: R39.9 Unspecified symptoms and signs involving the genitourinary system (principal)
CPT/HCPCS: 87086

== ENCOUNTER 2024-12-17 12:14 | Outpatient (AMB) | payer BC, SELFPAY ==
--- NOTE | 2024-12-17 12:20 | MHC.OFFVIS ---
Vital Signs 12/17/24 12:24 Height 5 ft 4 in Weight 157 lb BMI 26.9 BP 148/98 H Blood Pressure Location Rt brachial Position Sitting Pulse 84 Pulse Source Pulse Oximeter Pulse Oximetry (%) 96 Oxygen Delivery Method Room Air Intake Visit Reasons: Initial colo rescreening. [facility] 2021. Intake Note: New/Returning pt for rescreening prior to initial colo. [facility] 2021. CC: Pt denies any GI sx or concerns at this time. Pt states she was never called for scheduling her previous colo screening. Broadcast Operations Engineer Required: No Accompanied by: Self / Same As Patient Allergies bernabe (CHERRIES) Allergy (Unknown, Verified 12/17/24 12:20) THROAT SWELLS plums and citrics Allergy (Unknown, Uncoded 12/17/24 12:20) Unknown pollen Allergy (Unknown, Uncoded 12/17/24 12:20) Unknown HPI HPI Initial colo rescreening. [facility] 2021.: Details: LAST VISIT: 01/18/2022 Screen for colon cancer Patient denies any GI, cardiac or respiratory symptoms.? Denies any issues with anesthesia in the past.? Denies any history of sleep apnea.? No history infectious diseases in the past or present.? Not on any anticoagulation therapy.? Patient's mom was diagnosed with colorectal cancer in her 80s.? Patient denies melena, hematochezia, unintentional weight loss or ribbon like stools.? Discussed at length the pre-procedure,? prep, diet & medications as well as what to expect prior, during and after the procedure.?? Stressed the importance of good bowel prep. ?Recommended the use of Vaseline or Calmoseptine OTC & baby wipes with bowel movements to promote comfort.? ?Patient verbalizes understanding and agrees to plan of care.? She was given the opportunity to ask questions and all questions answered.? We will see her after the procedure.? Plan Orders Orders Complete Blood Count no Diff Today Z12.11 Comprehensive Met. Panel Today Z12.11 Medications New bisacodyl (Dulcolax (bisacodyl)) take 2 tabs at noon the day before your colonoscopy 10 mg (2 x 5 mg) PO ONCE 1 day 2 tabs 0RF Z12.11 polyethylene glycol 3350 (Miralax) As directed by gastroenterology department at [facility] 238 grams PO ONCE 238 grams 0RF Z12.11 TODAY'S VISIT Patient last seen in December of 2021. Patient was never scheduled for colonoscopy. Patient denies any change since last visit. Denies any cardiac or respiratory symptoms. Denies melena, hematochezia, unintentional weight loss or ribbon like stools. As mentioned above during last visit patient's mom was diagnosed with colon cancer at age 80. PFSH Surgical History Hx of section Family History Sister Pancreatic cancer Liver cancer Mother Colon cancer Social History Household Members: Other Unable to assess alcohol history related to: Unknown Patient Tobacco Use Status: Never used Tobacco Review of Systems Const Denies weight gain and Denies weight loss ENT Reports no additional complaints, Denies dysphagia and Denies odynophagia Card Reports no additional complaints Resp Reports no additional complaints GI Denies abdominal pain, Denies belching, Denies melena, Denies bloating, Denies change in bowel habits, Denies dysphagia, Denies excessive flatus, Denies dyspepsia, Denies heartburn, Denies diarrhea, Denies loose stools, Denies nausea, Denies odynophagia and Denies vomiting Musc Reports no additional complaints Neuro Reports no additional complaints Psych Reports no additional complaints Endo Reports no additional complaints Physical Exam Vital Signs: Last Vital Signs Pulse 84 12/17/24 12:24 BP 148/98 H 12/17/24 12:24 Pulse Ox 96 12/17/24 12:24 Oxygen Delivery Method Room Air 12/17/24 12:24 BMI result Body Mass Index 26.9 Const General: healthy appearing, no acute distress and well developed Nutritional Appearance: well nourished Orientation/consciousness: patient oriented x3 Resp Effort & Inspection: normal respiratory effort, able to speak in complete sentences, no tracheal deviation and symmetric chest movement Auscultation: clear to auscultation bilaterally Cardio Rate: regular rate GI Inspection: Yes normal to inspection and No distended Palpation (GI): Soft to palpation, not firm, nontender and No hepatosplenomegaly present Auscultation: normal bowel sounds General: Yes no CVA tenderness Back/Spine/Pelvis Back: no CVA tenderness Skin General skin exam: elasticity normal, turgor normal and dry skin Neuro General: patient oriented x3 Psych Appearance: grossly normal Mental Status: mental status grossly normal Assessment & Plan Assessment & Plan (1) Screen for colon cancer: Code(s): Z12.11 - Encounter for screening for malignant neoplasm of colon Plan Patient denies any GI, cardiac or respiratory symptoms.? Denies any issues with anesthesia in the past.? Denies any history of sleep apnea.? No history infectious diseases in the past or present.? Not on any anticoagulation therapy.? Family history of CRC.? Patient denies melena, hematochezia, unintentional weight loss or ribbon like stools.? Discussed at length the pre-procedure,? prep, diet & medications as well as what to expect prior, during and after the procedure.?? Stressed the importance of good bowel prep.? Recommended the use of Vaseline or Calmoseptine OTC & baby wipes with bowel movements to promote comfort.? ?Patient verbalizes understanding and agrees to plan of care.? She was given the opportunity to ask questions and all questions answered.? We will see her after the procedure.? Medications: New bisacodyl (Dulcolax (bisacodyl)) take 4 tabs at noon the day before your colonoscopy 20 mg (4 x 5 mg) PO ONCE 4 tabs 0RF constipation 1 day Z12.11 - Encounter for screening for malignant neoplasm of colon polyethylene glycol 3350 (Miralax) As directed by gastroenterology department at [facility] 238 grams PO ONCE 238 grams 0RF Z12.11 - Encounter for screening for malignant neoplasm of colon Coding Level of Care Code Est Pt Level 3 (29965) Diagnoses Screen for colon cancer Z12.11 Time Spent (min) 30 Comment 20 minutes spent with patient and additional 10 minutes spent reviewing her records
[2024-12-17 12:24] VITALS: BP 148/98; PULSE 84; O2SAT 96; BMI 26.9
--- OUTSIDE RECORDS SUMMARY | 2024-12-17 13:07 | XMS_ITS | Clinical Summary ---
Author Organization [employer] Address [address] [facility] [address] [place] [address] Care Team Providers Care Remanufacturing Technician Name Role Phone Reyna Garrido MD Primary Care Pro vider Allergies Active Allergy Reactions Criticality Noted Date Comments Mcgill Itching High 11/18/2020 Medications biotin 1 MG capsule Take by mouth. Active fexofenadine ODT (Lesa ODT) 30 MG disintegrating tablet Take 30 mg by mouth Once per day. Active lisinopril 10 MG tabletIndications:E ssential hypertension Take 1 tablet (10 mg) by mouth in the morning. 90 tablet 5 Active hydrocortisone 1 % ointment Apply to affected area once daily x 7 days 28 g 5 Active fish oil-omega-3 fatty acids 1000 MG capsule Take 1 capsule (1 g) by mouth Once per day. 90 capsule 1 5 10/18/19 26 Active diphenhydrAMINE (BENADryl) 25 MG tabletIndications:A dverse effect of vaccine, initial encounter Take 1 tablet (25 mg) by mouth every 6 (six) hours if needed for itching. 30 tablet 5 Active nitrofurantoin, macrocrystal-monohy drate, (Macrobid) 100 MG capsuleIndications: UTI symptoms Take 1 capsule (100 mg) by mouth 2 times daily for 7 days. 14 capsule 5 12/18/19 25 Active Active Problems Problem Noted Date Diagnosed Date UTI symptoms 12/10/2024 Assessment & Plan (12/10/2024 1:16 PM EDT): Advised to drink plenty of water and do not hold the urine UA and culture ordered patient will be contacted with results I prescribed Macrobid 100 mg twice a day for 7 days Vaccine reaction 10/22/2024 Cellulitis 10/22/2024 Assessment & Plan (10/22/2024 7:39 PM EDT): I will treat her for possible infection with cephalexin 500 mg every 6 hours for 5 days I advised to monitor area if it is getting worse advised to come back for evaluation Prediabetes 10/18/2024 HLD (hyperlipidemia) 10/18/2024 Hypercalcemia 10/18/2024 Overweight (BMI 25.0-29.9) 08/30/2024 Abnormal EKG 08/30/2024 Health care maintenance 08/29/2024 Essential hypertension 07/26/2021 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 Resolved Problems Problem Noted Date Diagnosed Date Resolved Date Dental abscess 06/19/2024 08/30/2024 Encounters Date Type Department Care Team Description 12/10/2024 10:40 AM EDT Office Visit [facility] [address] [place] [phone] Reyna Fairchild MD UTI symptoms 12/10/2024 Travel 10/22/2024 7:00 PM EDT Office Visit [facility] [address] [place] [address] Reyna Fairchild MD Adverse effect of vaccine, initial encounter (Primary Dx); Cellulitis of other specified site 10/22/2024 Travel 10/21/2024 Orders Only [facility] [address] [place] [address] Dov Harris CNM 10/21/2024 Results Follow-Up [facility] [address] [place] [phone] Dov Harris CNM Pap Smear 10/17/2024 9:30 AM EDT Office Visit [facility] [address] [place] [phone] Reyna Garrido MD Transaminitis (Primary Dx); Encounter for immunization; Health care maintenance; Overweight (BMI 25.0-29.9); Abnormal EKG; Essential hypertension; Prediabetes; Hyperlipidemia, unspecified hyperlipidemia type; Hypercalcemia 10/17/2024 Telephone [facility] [address] [place] [phone] Reyna Garrido MD Lab Orders 10/17/2024 Travel 10/16/[address] [address] Reyna Garrido MD chart prep 10/15/2024 1:45 PM EDT Procedure Visit [address] [phone] Dov Harris CNM Cervical cancer screening (Primary Dx); Dermatitis 10/15/2024 Orders Only [facility] [address] [place] [phone] Dov Harris CNM 10/15/2024 Results Follow-Up [facility] [address] [place] [phone] Reyna Garrido MD Albumin, Random Urine W/Creatinine, CBC, Comprehensive Metabolic Panel, Additional followed-up results: 3 10/15/2024 Travel 10/14/[address] [phone] Reyna Garrido MD chartprep from Last 3 Months Immunizations Immunization Administration Dates Next Due Pneumococcal Conjugate PCV 20 10/17/2024 Tdap 11/18/2020 Zoster, Recombinant 11/18/2020 Family History Medical History Relation Name Comments bladder ca Brother valvular cardiopathy Brother Heart attack Father Cancer Maternal Grandmother ? uteri ne Colon cancer Mother Cancer Paternal Grandmother ? uteri ne Liver cancer Sister Relation Name Status Comments Brother Father Maternal Grandmother Mother Paternal Grandmother Sister Social History Tobacco Use Types Packs/Day [...] Sign Reading Time Taken Comments Blood Pressure 134/96 12/10/2024 10:13 AM EDT Pulse 98 12/10/2024 10:13 AM EDT Temperature 36.9 C (98.5 F) 12/10/2024 10:13 AM EDT Respiratory Rate 20 12/10/2024 10:13 AM EDT Oxygen Saturation 98% 12/10/2024 10:13 AM EDT Inhaled Oxygen Concentration - - Weight 72 kg (158 lb 12.8 oz) 10/22/2024 6:30 PM EDT Height 162.6 cm (5' 4 ) 10/22/2024 6:30 PM EDT Body Mass Index 27.26 10/22/2024 6:30 PM EDT Plan of Treatment Upcoming Encounters Date Type Department Care Team ([facility] st Contact Info) Description 03/27/2025 1:00 PM EST Office Visit [facility] [address] [facility] [address] Ginette Florez Health Maintenance Due Date Last Done Comments CT Colonography 1970 Colonoscopy 1970 Colorectal Cancer Screening 1970 FIT DNA/Cologuard 1970 FIT 1970 FOBT 1970 Sigmoidoscopy 1970 Hepatitis B Vaccines (1 of 3 - 19+ 3-dose series) 1989 Zoster Vaccines (2 of 2) 01/13/2021 11/18/2020 COVID-19 Vaccine ( - season) 2023 09/22/2020, 08/24/2020 Dental Oral Exam 08/20/2024 02/19/2024 Dental Prophylaxis 09/02/2024 03/04/2024 Influenza Vaccine (#1) 2024 Dental X-Ray: Bitewings 02/19/2025 02/19/2024, 01/12 Alcohol/Substance Use Screening 08/29/2025 08/29/2024 Depression Screening 08/29/2025 08/29/2024, 08/30/19 Disability Screening 08/29/2025 08/29/2024 Cervical Cancer Screening 10/15/2025 Diabetes: Hemoglobin A1C 10/15/2025 10/15/2024 HPV/Cotest 10/15/2025 10/15/2024, 10/28/2021 Pap Smear 10/15/2025 10/15/2024, 10/28/2021 SDOH Screening 10/15/2025 10/15/2024 Tobacco Screening 10/15/2025 10/15/2024 Mammogram 09/12/2026 09/12/2024, 0306/2021, 01/14/2021, Additional history exists Dental X-Ray: Full Mouth 02/19/2027 02/19/2024 Lipid Panel 10/15/2029 10/15/2024, 11/18/2020 DTaP/Tdap/Td Vaccines (2 - Td or Tdap) 11/18/2030 11/18/2020 RSV Patients and Patients Aged 60 years or older (1 - 1-dose 75+ series) 2045 HIV Screening Completed 10/15/2024, 11/18/2020 Hepatitis C Screening Completed 10/15/2024, 021 Pneumococcal Vaccine: 50+ Years Completed 10/17/2024 HIB Vaccines Aged Out No longer eligi [...] Procedure Name Priority Date/Time Associated Diagnosis Comments CULTURE, URINE, ROUTINE Routine 12/10/2024 10:15 AM EDT UTI symptoms POCT URINALYSIS DIPSTICK Routine 12/10/2024 10:14 AM EDT UTI symptoms PAP SMEAR Routine 10/15/2024 1:55 PM EDT Cervical cancer screening HPV DNA, LOW/HIGH RISK Routine 1:55 PM EDT SYPHILIS SCREEN Routine 10/15/2024 1:07 PM EDT Annual physical exam TSH W/REFLEX TO FT4 Routine 10/15/2024 1 :07 PM EDT Annual physical exam LIPID PANEL, STANDARD Routine 10/15/2024 1:07 PM EDT Annual physical exam HIV 1/2 ANTIGEN/ANTIBODY, FOURTH GENERATION W/RFL Routine 10/15/2024 1:07 PM EDT Annual physical exam HEPATITIS C AB W/REFL TO HCV RNA, QN, PCR Routine 10/15/2024 1:07 PM EDT Annual physical exam HEPATITIS B SURFACE ANTIGEN, EIA Routine 10/15/2024 1:07 PM EDT Annual physical exam HEPATITIS B SURFACE ANTIBODY, QUALITATIVE Routine 10/15/2024 1:07 PM EDT Annual physical exam HEPATITIS B CORE AB TOTAL Routine 10/15/2024 1:07 PM EDT Annual physical exam HEMOGLOBIN A1C Routine 10/15/2024 1:07 PM EDT Annual physical exam COMPREHENSIVE METABOLIC PANEL Routine 10/15/2024 1:07 PM EDT Annual physical exam CBC Routine 10/15/2024 1:07 PM EDT Annual physical exam ALBUMIN, RANDOM URINE W/CREATININE Routine 10/15/2024 1:07 PM EDT Annual physical exam CHLAMYDIA/N. GONORRHOEAE RNA, TMA, UROGENITAL Routine 10/15/2024 1:07 PM EDT Annual physical exam BI MAMMOGRAM SCREENING TOMOSYNTHESIS BILATERAL Routine 09/12/2024 12:45 PM EDT Breast cancer screening by mammogram PROPHYLAXIS - ADULT Routine 03/04/2024 3 :00 PM EST Dental plaque Dental calculus INTRAORAL - COMPLETE SERIES OF RADIOGRAPHIC IMAGES Routine 02/19/2024 1:30 PM EDT Encounter for dental examination Need for full coverage dental crown COMPREHENSIVE ORAL EVALUATION - NEW OR ESTABLISHED PATIENT Routine 02/19/2024 1:30 PM EDT Encounter for dental examination Need for full coverage dental crown from Last 3 Months or Most Recently Relevant to Health Maintenance Results * Culture, Urine, Routine (12/10/2024 10:15 AM EDT) Urine Urine specimen obtained by clean catch procedure / Unknown 12/10/2024 10:15 AM EDT 12/10/2024 5:04 PM EDT Comment:UACC Narrative [facility] - 12/12/2024 8:48 AM EDT Urine Culture No growth. Specimen Source: Urine clean catch Reyna Lyman MD LAB MICROBIOLOGY - GE NERAL ORDERABLES Final Result [facility] [address] [place] [phone] * (ABNORMAL) POCT urinalysis dipstick manually resulted (12/10/2024 10:14 AM EDT) Color, UA Colorless Clarity, UA Clear Glucose, UA Negative Bilirubin, UA Negative Ketones, UA Negative Spec Grav, UA 1.010 Blood, UA Positive(A) Negative, None Detected Comment:Moderate pH, UA 7.0 Protein, UA Negative Urobilinogen, UA 0.2 Leukocytes, UA Few 15(A) Negative, Rare, Trace Comment:small Nitrite, UA Negative Negative, None Detected Urine 12/10/2024 10:1 4 AM EDT Reyna Lyman MD POINT OF CARE TEST EN TER/EDIT ORDERABLES Final Result * HPV DNA, Low/High Risk (10/15/2024 1:55 PM EDT) HPV High Risk Negative Negative [facility] HPV Genotype 16 Negative Negative [facility] HPV Genotype 18 Negative Negative [facility] Comment:HPV testing performe d at [facility] (CLIA#[id number]), [address] [place] [address].Testing for HPV was performed using the [employer] SURJIT 6800system. The presence of HPV in the female genital tract isassociated with a number of diseases, including cervicalcarcinoma. The HPV DNA high risk pool tests for HPV 31, 33,35, 39, 45, 51, 52, 56, 58, 59, 66 and 68. The testing forHPV 16 and 18 genotypes has also been performed. A positiveresult indicates detection of nucleic acid sequences fromone or more subtypes, whereas a negative result indicatessuch sequences were not detected. 10/15/2024 1:55 PM EDT 10/16/2024 8:15 AM EDT us Dov Harris CNM LAB BLOOD ORDERABLES Jo-Ann l Result [facility] [address] [place] [phone] * Pap Smear (10/15/2024 1:55 PM EDT) Swab Cervix uteri structure / Unknown 10/15/2024 1:55 PM EDT 10/16/2024 8:15 AM EDT Narrative [facility] - 10/21/2024 12:44 PM EDT ----- ------- Name: RomelDolly Age/Sex: 54/F : 1970 Unit#: [id number] Attend Dr: DOV HARRIS CNM Re10/15/24 Status: DEP REF Location: HO.HHCLNP Disch: ----- ------- SPEC : [id number] RECD: 10/16/24 STATUS: VIOLET MACKEY NUM: [id number] FARHAN: 10/15/24-[address] [facility] [address]: DOV HARRIS Karen ENTERED: 10/16/24 SP TYPE: Pap Smr [facility] DR: ORDERED: Pap Smear Interpretation Satisfactory for evaluation. Negative for intraepithelial lesion or malignancy. No endocervical cells seen. Fungal organisms consistent with Audra species. HPV High Risk: Negative HPV Genotyping 16: Negative HPV Genotyping 18: Negative Clinical Information LMP: Unknown date Previous PAP test: 2021 NIL, HPV positive Other history: Cervical cancer screening Material Received ThinPrep-Cervical PAP Disclaimer As of February 14, 2024, the technical services to include automated prescreening performed by the ThinPrep Imaging System, PAP screening and HPV testing will be performed at [facility] (CLIA #[id number]), [address] [place] [address]. Testing for HPV was performed using the [employer] system. The presence of HPV in the female genital tract is associated with a number of diseases, including cervical carcinoma. The HPV DNA high risk pool tests for HPV 31, 33, 35, 39, 45, 51, 52, 56, 58, 59, 66 and 68. The testing for HPV 16 and 18 genotypes has also been performed. A positive result indicates detection of nucleic acid sequences from one or more subtypes, whereas a negative result indicates such sequences were not detected. All professional services are performed by [facility] ([address] [place] [address]; ; CLIA #[id number]). The PAP Test is a screening procedure with the inherent possibility of both false negative and false positive results. Results should be interpreted in the context of historic and current clinical findings. Reliability of the PAP Test is enhanced by performing the test on a regular repetitive basis. CONTINUED ON NEXT PAGE ----- ------- Name: Dolly Urena Age/Sex: 54/F : 1970 Unit#: [id number] Attend Dr: DOV HARRIS CNM Re10/15/24 Status: DEP [facility] Disch: ----- ------- SPEC : [id number] RECD: 10/16/24 STATUS: VIOLET MACKEY NUM: [id number] FARHAN: 10/15/24-[address] [place] [address] DR: DOV HARRIS CNM ENTERED: 10/16/24 SP TYPE: Pap Natasha OBREGON DR: ORDERED: Pap Smear ----- ------- Signed (signature on file) SAMANTA Santamaria (ASCP) 10/21/24 1244 ----- ------- END OF REPORT us Dov LIZARRAGA LAB CYTOLOGY ORDERABLES F inal Result Performing Organization Address [facility]/ZIP Co de Phone Number [facility] [address] [place] [address] [phone] * Syphilis Screen (10/15/2024 1:07 PM EDT) Syphilis Screen Nonreactive Nonreactive [facility] Blood 10/15/2024 1:07 PM EDT 10/15/2024 4:10 PM EDT us Reyna Chavarria MD LAB BLOOD ORDERAB LES Final Result Performing Organization Address [facility] Co de Phone Number [facility] [address] [place] [phone] * TSH with Reflex to Free T4 (10/15/2024 1:07 PM EDT) Pathologist [facility] TSH reflex Free T4 1.16 0.32 - 4.0 uIU/mL [facility] Blood 10/15/2024 1:07 PM EDT 10/15/2024 4:10 PM EDT us Reyna Chavarria MD LAB BLOOD ORDERAB LES Final Result Performing Organization Address [facility] Co de Phone Number [facility] [address] [place] [phone] * Albumin, Random Urine W/Creatinine (10/15/2024 1:07 PM EDT) Creatinine, Urine 125.01 mg/dL [facility] Microalbumin Urine 12.0 mg/L [facility] Microalbum Creatinine Ratio Ur 9.5 <30 ug/mg cr [facility] Comment:Albumin/Creatinine R atio Reference Ranges: Normal: < 30 ug/mg creatinine Microalbuminuria: 30 - 300 ug/mg creatinineClinical Albuminuria: > 300 ug/mg creatinine Urine (Urine, Random) 10/15/2024 1:07 PM EDT 10/15/2024 4:16 PM EDT Reyna Chavarria MD LAB URINE ORDERAB LES Final Result Performing Organization Address [facility]/ZIP Co de Phone Number [facility] [address] [place] [phone] * Hepatitis C Antibody with Reflex to HCV, RNA, Quantitative, Real-Time PCR (10/15/2024 1:07 PM EDT) Hepatitis C Antibody Nonreactive Nonreactive [facility] Comment:Antibodies to HCV no t detected; does not exclude early acuteHCV infection. Blood Venous blood specimen / Unknown 10/15/2024 1:07 PM EDT 10/15/2024 4:10 PM EDT Reyna Chavarria MD LAB BLOOD ORDERAB LES Final Result Performing Organization Address [facility] Co de Phone Number [facility] [address] [place] [phone] * Chlamydia/N. Gonorrhoeae RNA, TMA, Urogenitial (10/15/2024 1:07 PM EDT) Pathologist [facility] CT PCR NOT DETECTED Not Detect. [facility] Comment:A not detected test result does not exclude the possibilityof infection because test results can be affected byimproper specimen collection, concurrent antibiotic therapy,or the number of organisms in the specimen which may bebelow the sensitivity of the test. As with many diagnostictests, results from the Xpert CT/NG assay should beinterpreted in conjunction with other laboratory andclinical data available to the clinician.Xpert CT/NG performance has not been evaluated in patientsless than 14 years of age. The assay should not be used forthe evaluationof suspected sexual abuse or for other medico-legalindications. Additional testing is recommended in anycircumstance when false positive or false negative resultscould lead to adverse medical, social or psychologicalconsequences. NG PCR NOT DETECTED Not Detect. [facility] Comment:A not detected test result does not exclude the possibilityof infection because test results can be affected byimproper specimen collection, concurrent antibiotic therapy,or the number of organisms in the specimen which may bebelow the sensitivity of the test. As with many diagnostictests, results from the Xpert CT/NG assay should beinterpreted in conjunction with other laboratory andclinical data available to the clinician.Xpert CT/NG performance has not been evaluated in patientsless than 14 years of age. The assay should not be used forthe evaluationof suspected sexual abuse or for other medico-legalindications. Additional testing is recommended in anycircumstance when false positive or false negative resultscould lead to adverse medical, social or psychologicalconsequences. Urine (Urine, Random) 10/15/2024 1:07 PM EDT 10/15/2024 4:16 PM EDT Reyna Chavarria MD LAB MICROBIOLOGY - GENERAL ORDERABLES Final Result Performing Organization Address City/[facility]/ZIP Co de Phone Number [facility] [address] [place] [phone] * Hepatitis B surface antigen, EIA (10/15/2024 1:07 PM EDT) Hepatitis B Surface Ag Negative Negative [facility] Blood Venous blood specimen / Unknown 10/15/2024 1:07 PM EDT 10/15/2024 4:10 PM EDT us Reyna Chavarria MD LAB BLOOD ORDERAB LES Final Result [facility] [address] [place] [phone] * Hepatitis B Core Antibody, Total (10/15/2024 1:07 PM EDT) Hepatitis B Core Antibody Nonreactive Nonreactive [facility] Blood Venous blood specimen / Unknown 10/15/2024 1:07 PM EDT 10/15/2024 4:10 PM EDT us Reyna Chavarria MD LAB BLOOD ORDERAB LES Final Result Performing Organization Address [facility]/ZIP Co de Phone Number [facility] [address] [place] [phone] * HIV-1/2 Antigen and Antibodies, Fourth Generation, with Reflexes (10/15/2024 1:07 PM EDT) [facility] HIV AB/AG Nonreactive Nonreactive [facility] Comment:HIV-1 p24 Ag and/or HIV-1/HIV-2 Ab not detected.A test result that is nonreactive does not exclude thepossibility of exposure to or infection with HIV-1 and/orHIV-2. Nonreactive results in this assay for individualswith prior exposure to HIV-1 and/or HIV-2 may be due toantigen and antibody levels that are below the limit ofdetection of this assay.The BoldIQ[employer]ity HIV Ag/Ab Combo assay result andsupplemental assay results should be interpreted inconjunction with the patient's clinical presentation,history and other laboratory results. If the results areinconsistent with clinical evidence, additional testing issuggested to confirm the result. Blood Venous blood specimen / Unknown 10/15/2024 1:07 PM EDT 10/15/2024 4:10 PM EDT us Reyna Chavarria MD LAB BLOOD ORDERAB LES Final Result Performing Organization Address City/[facility]/ZIP Co de Phone Number [facility] [address] [place] [phone] * Hepatitis B Surface Antibody, Qualitative (10/15/2024 1:07 PM EDT) [facility] ~Hepatitis B Surface Antibody NONREACTIVE Nonreactive [facility] Comment:Nonreactive: < 8.00 mIU/mL Blood Venous blood specimen / Unknown 10/15/2024 1:07 PM EDT 10/15/2024 4:10 PM EDT us Reyna Chavarria MD LAB BLOOD ORDERAB LES Final Result [facility] [address] [place] [phone] * CBC (10/15/2024 1:07 PM EDT) White Blood Count 7.9 4.8 - 10.8 X10*3/uL [facility] Red Blood Count 4.94 4.20 - 5.50 X10*6/uL [facility] Hemoglobin 14.7 12.0 - 16.0 g/dl [facility] Hematocrit 45.1 37.0 - 47.0 % [facility] Mean Corpuscular Volume 91.3 80.0 - 98.0 fL [facility] Mean Corpuscular Hemoglobin 29.8 27.0 - 33.0 pg [facility] Mean Corpuscular HGB Conc 32.6 31.0 - 35.0 g/dl [facility] Red Cell Distribution Width 11.9 11.0 - 16.0 % [facility] Platelet Count 264 160 - 400 X10*3/uL [facility] Mean Platelet Volume 10.9 9.4 - 12.3 fL [facility] NRBC Pct Auto 0.0 0.0 - 0.2 /100WBC [facility] NRBC Abs Auto 0.000 0.0 - 0.012 X10*3/uL [facility] Blood Venous blood specimen / Unknown 10/15/2024 1:07 PM EDT 10/15/2024 4:10 PM EDT us Reyna Chavarria MD LAB BLOOD ORDERAB LES Final Result Performing Organization Address City/[facility]/ZIP Co de Phone Number [facility] [address] [place] [phone] * Hemoglobin A1c (10/15/2024 1:07 PM EDT) Hemoglobin A1c 5.7 <6.0 % [facility] Comment:Hemoglobin A1C Refer ence Range Adults: 4.8 - 6.0 % Non diabetic: < 6.0 % Goal: < 7.0 %Additional Action Suggested: > 8.0 %Note: Hemoglobin A1c results are invalid for patients with abnormal amounts of HbF. Blood transfusions may impact the HbA1c concentration in the patient sample. Estimated Average Glucose 117 mg/dL [facility] Comment:eAG = Estimated ave rage glucose which is %A1C expressed asaverage glucose, using the formula of the [id number] Glucose study (ADAG), Diabetes Care, Vol.31,#8,Nov. 2007 Blood Venous blood specimen / Unknown 10/15/2024 1:07 PM EDT 10/15/2024 4:10 PM EDT us Reyna Chavarria MD LAB BLOOD ORDERAB LES Final Result [facility] [address] [place] [phone] * (ABNORMAL) Lipid Panel, Standard (10/15/2024 1:07 PM EDT) Triglycerides 70 <150 mg/dL [facility] Comment:Desirable Triglyceri de: less than 150 mg/dLBorderline High Triglyceride 150-199 mg/dLHigh Triglyceride: 200-499 mg/dLVery High Triglyceride: greater than or equal to 5OO mg/dL Cholesterol 216(H) <200 mg/dL [facility] [facility] Comment:Desirable Cholestero l: less than 200 mg/dLBorderline High Cholesterol: 200-239 mg/dLHigh Cholesterol: greater than 239 mg/dL LDL Cholesterol Calculated 140(H) <100 mg/dL [facility] Comment:Desirable LDL: less than 100 mg/dLNear Optimal/Above Optimal LDL: 110- 129 mg/dLBorderline High LDL: 130-159 mg/dLHigh LDL: 160-189 mg/dLVery High LDL: greater than or equal to 190 mg/dL HDL Cholesterol 62 >40 mg/dL [facility] Comment:Desirable HDL: great er than 40 mg/dL Note: This HDL assay may give artificially low results in patients with liver disease. Blood Venous blood specimen / Unknown 10/15/2024 1:07 PM EDT 10/15/2024 4:10 PM EDT Reyna Chavarria MD LAB BLOOD ORDERAB LES Final Result [facility] [address] [place] [address] [phone] * (ABNORMAL) Comprehensive Metabolic Panel (10/15/2024 1:07 PM EDT) Sodium 140 135 - 145 mmol/L [facility] Potassium 3.7 3.3 - 5.1 mmol/L [facility] Chloride 103 96 - 108 mmol/L [facility] Carbon Dioxide 26 22 - 29 mmol/L [facility] Anion Gap 15 12 - 20 [facility] Urea Nitrogen (BUN) 16 9 - 16 mg/dL [facility] Creatinine, Serum 0.84 0.5 - 1.4 mg/dL [facility] Estimated Glomerular Filt Rate >60 [facility] Comment:Chronic Kidney Disea se: Estimated GFR < 60 mL/min/[id number] Kidney Disease: Estimated GFR < 15 mL/min/1.73m2 Glucose 83 60 - 115 mg/dL [facility] Calcium 10.5(H) 8.4 - 10.2 mg/dL [facility] Bilirubin, Total 0.6 0.0 - 1.0 mg/dL [facility] Aspartate Amino Transferase 33(H) 5 - 31 U/L [facility] Alanine Aminotransferase 35(H) 0 - 31 U/L [facility] Total Protein 7.4 6.5 - 8.0 g/dL [facility] Albumin Level 4.6 3.5 - 5.0 g/dL [facility] Alkaline Phosphatase 57 39 - 117 U/L [facility] Blood Venous blood specimen / Unknown 10/15/2024 1:07 PM EDT 10/15/2024 4:10 PM EDT Reyna Chavarria MD LAB BLOOD ORDERAB LES Final Result [facility] [address] [facility] [place] [address] [phone] * BI Mammogram Screening Tomosynthesis Bilateral (09/12/2024 12:45 PM EDT) Anatomical Region Laterality Modality Breast Bilateral Mammography 09/12/2024 12:4 5 PM EDT Narrative 09/21/2024 11:54 AM EDT [address] [place] [address] Mammography Report Signed Patient: Dolly Urena MR#: [id number] : 1970 Acct:[id number] Age/Sex: 54 / F ADM Date: 09/12/24 Loc: HO.MAMMO Attending Dr: Reyna Chavarria MD Ordering Physician: Reyna Garrido MD Re sults: 1Negative Date of Service: 09/12/24 Follow Up: 1 Year From Orig ina Mammogram Procedure(s): MM tomosynthesis screening BI Accession Number(s): [id number] cc: Reyna Garrido MD EXAMINATION: MM SCREENING DIGITAL BREAST TOMOSYNTHESIS, BILATERAL CLINICAL INFORMATION: Screening. Asymptomatic. COMPARISON: Mammography: Comparison is made with available priors TECHNIQUE: Digital breast mammography with tomosynthesis is performed in both the craniocaudal and mediolateral oblique views along with computer-aided detection (CAD). FINDINGS: There are scattered areas of fibroglandular density (ACR BI-RADS breast composition Category b). There are no significant masses, abnormal calcifications, or other abnormalities. MM/MM tomosynthesis screening BI IMPRESSION: No mammographic evidence of malignancy. ASSESSMENT: BI-RADS BI-RADS 1 - Negative RECOMMENDATION: Routine annual mammography screening. 1 year F/U This examination should not preclude the clinical evaluation of a suspicious palpable abnormality. This patient's information was entered into a reminder system with a target due date for their next mammogram. Electronically signed by: Lisa Garcia DO 09/21/2024 11:51 AM EDT Dictated By: Lisa Garcia DO Signed By: <Electronically signed by Lisa Garcia DO in OV> 09/21/24 1151 DD/ 1245 TD/TT: 09/12/24 1303 Olericulturist: Procedure Note Donotuseinterpreter, Image - 09/21/2024 [facility] [address] [place] [address] Mammography Report Signed Patient: Dolly UrenaMR#: [id number] : 1970Acct:[id number] Age/Sex: 54 / FADM Date: 09/12/24 Loc: HO.MAMMO Attending Dr: Reyna Chavarria MD Ordering Physician: Reyna Garrido sults: 1Negative Date of Service: 09/12/24Follow Up: 1 Year From Orig inal Mammogram Procedure(s): MM tomosynthesis screening BI Accession Number(s): [id number] cc: Reyna Garrido MD EXAMINATION: MM SCREENING DIGITAL BREAST TOMOSYNTHESIS, BILATERAL CLINICAL INFORMATION: Screening. Asymptomatic. COMPARISON: Mammography: Comparison is made with available priors TECHNIQUE: Digital breast mammography with tomosynthesis is performed in both the craniocaudal and mediolateral oblique views along with computer-aided detection (CAD). FINDINGS: There are scattered areas of fibroglandular density (ACR BI-RADS breast composition Category b). There are no significant masses, abnormal calcifications, or other abnormalities. MM/MM tomosynthesis screening BI IMPRESSION: No mammographic evidence of malignancy. ASSESSMENT: BI-RADS BI-RADS 1 - Negative RECOMMENDATION: Routine annual mammography screening. 1 year F/U This examination should not preclude the clinical evaluation of a suspicious palpable abnormality. This patient's information was entered into a reminder system with a target due date for their next mammogram. Electronically signed by: Lisa Garcia DO 09/21/2024 11:51 AM EDT Dictated By: Lisa Garcia DO Signed By: <Electronically signed by Lisa Garcia DO in OV> 09/21/24 1151 DD/ 1245 TD/TT: 09/12/24 1303 Olericulturist: Reyna Chavarria MD IMG BI PROCEDURES Final Result from Last 3 Months or Most Recently Relevant to Health Maintenance Insurance [employer] [facility] [employer] Care Teams Remanufacturing Technician Relationship Specialty Start Date End Date Reyna Garrido MD [address] [place] [phone] PCP - General Internal Medicine 12/12/22
--- OUTSIDE RECORDS SUMMARY | 2024-12-17 13:07 | XMS_ITS | Encounter Summary ---
Author Organization [employer] Address [address] [facility] [address] [place] [address] Care Team Providers Care Quantitative Associate Name Role Phone Reyna Garrido MD Primary Care Pro vider Reason for Visit * Reason Comments Med Refill Encounter Details Date Type Department Care Team (Late st Contact Info) Description 09/09/2024 Refill [facility] [address] [place], [place] [phone] Adeline Lea, [address] [place], [place] [phone] Social History Tobacco Use Types Packs/Day Years [...] Description 03/27/2025 1:00 PM EST Office Visit [facility] [address] [place] [address] Ginette Florez documented as of this encounter Visit Diagnoses Not on filedocumented in this encounter Additional Health Concerns Assessment Noted Time PHQ-9 Depression Total Score: 0 08/30/19 25 2:19 PM EDT documented as of this encounter Care Teams Quantitative Associate Relationship Specialty Start Date End Date Reyna Garrido MD [address] [place] [address] PCP - General Internal Medicine 12/12/22 documented as of this encounter
--- OUTSIDE RECORDS SUMMARY | 2024-12-17 13:07 | XMS_ITS | Encounter Summary ---
Author Organization [employer] Address [address] [facility] 7[address] [place] [address] Care Team Providers Care Recreation Director Name Role Phone Reyna Garrido MD Primary Care Pro vider Reason for Visit * Reason Onset Date Comments cancelled appt OS 01/29/2024 Encounter Details Date Type Department Care Team ([facility] st Contact Info) Description 01/29/2024 Telephone [facility] ADULT D[facility]AL [address] [place] [address] Mir Harris, DMD [address] [place] [address] cancelled appt OS Social History Tobacco Use [...] Miscellaneous Notes * Telephone Encounter - Sonia Castellon - 01/29/2024 10:56 AM EDT Patient called [...] Description 03/27/2025 1:00 PM EST Office Visit [facility] ADULT [facility] [address] [place] [address] Ginette Florez documented as of this encounter Visit Diagnoses Not on filedocumented in this encounter Care Teams Recreation Director Relationship Specialty Start Date End Date Reyna Garrido MD [address] [place] [address] PCP - General Internal Medicine 12/12/22 documented as of this encounter
--- OUTSIDE RECORDS SUMMARY | 2024-12-17 13:07 | XMS_ITS | Encounter Summary ---
Author Organization [employer] Address [address] [place] [address] [address] [place] [address] Care Team Providers Care Biomass Boiler Operator Name Role Phone Reyna Garrido MD Primary Care Pro vider Encounter Details Date Type Department Care Team (Latest Contact Info) Description 10/15/2024 Results Follow-Up [facility] [address] [place] [address] [phone] Reyna Garrido MD [address] [place] [address] Albumin, Random Urine W/Creatinine, CBC, Comprehensive Metabolic [...] Description 03/27/2025 1:00 PM EST Office Visit [facility] [address] [place] [address] Ginette Florez documented as of this encounter Visit Diagnoses Not on filedocumented in this encounter Additional Health Concerns Assessment Noted Time PHQ-9 Depression Total Score: 0 08/30/19 25 2:19 PM EDT documented as of this encounter Care Teams Biomass Boiler Operator Relationship Specialty Start Date End Date Reyna Garrido MD [address] [place] [address] PCP - General Internal Medicine 12/12/22 documented as of this encounter
--- OUTSIDE RECORDS SUMMARY | 2024-12-17 13:07 | XMS_ITS | Encounter Summary ---
Author Organization [employer] Address [address] [place] [address] Care Team Providers Care High School Band Teacher Name Role Phone Reyna Garrido MD Primary Care Pro vider Reason for Visit * Reason Onset Date Comments Appointment Request 02/16/2024 Encounter Details Date Type Department Care Team ([facility] Contact Info) Description 02/16/2024 Telephone [facility] [address] [place], [place] [phone] Reyna Garrido MD [address] [place], [place] [phone] Appointment Request Social History Tobacco Use Types [...] from pt requesting transfer pt appt but data analyst report writer found no availability. Pt stated she has waited over 9 months for initial TP but due to insurance she wasn't able to attend. Please contact pt at [phone]. (Moldovan Speaker) documented in this encounter Plan of Treatment Upcoming Encounters Date Type Department Care Team (Late st Contact Info) Description 03/27/2025 1:00 PM EST Office Visit [facility] ADULT [facility] [address] [place] [address] Ginette Florez documented as of this encounter Visit Diagnoses Not on filedocumented in this encounter Care Teams High School Band Teacher Relationship Specialty Start Date End Date Reyna Garrido MD [address] [place] [address] PCP - General Internal Medicine 12/12/22 documented as of this encounter
== END 2024-12-17 13:13 | disposition home or self-care (01) ==
LOC: HO.HGI 12:15
PROVIDERS: Referring Provider Student in an Organized Health Care Education/Training Program; Visit Provider Nurse Practitioner Family
DX: Z01.818 Encounter for other preprocedural examination (principal); Z12.11 Encounter for screening for malignant neoplasm of colon; Z80.0 Family history of malignant neoplasm of digestive organs
CPT/HCPCS: S0285

== ENCOUNTER 2025-01-23 07:25 | Day surgery (SDC) | payer BC, SELFPAY ==
--- OUTSIDE RECORDS SUMMARY | 2025-01-16 17:35 | XMS_ITS | Encounter Summary ---
Author Organization [employer] Address [address] [facility] 7t [place] [address] Care Team Providers Care Air Tool Operator Name Role Phone Reyna Garrido MD Primary Care Pro vider Reason for Visit * Reason Onset Date Comments cancelled appt OS 01/29/2024 Encounter Details Date Type Department Care Team ([facility] st Contact Info) Description 01/29/2024 Telephone [facility] ADULT [facility] [address] [place] [address] Mir Harris, DMD [address] [place] [address] cancelled appt OS Social History Tobacco Use [...] Team (Late st Contact Info) Description 03/27/2025 12:45 PM EST Office Visit [facility] AD[facility] [address] [place] [address] Ginette Florez documented as of this encounter Visit Diagnoses Not on filedocumented in this encounter Care Teams Air Tool Operator Relationship Specialty Start Date End Date Reyna Garrido MD [address] [place] [address] PCP - General Internal Medicine 12/12/22 documented as of this encounter
--- OUTSIDE RECORDS SUMMARY | 2025-01-16 17:35 | XMS_ITS | Encounter Summary ---
Author Organization [employer] Address [address] [place] [address] Care Team Providers Care Post Partum Nurse Name Role Phone Reyna Garrido MD Primary Care Pro vider Reason for Visit * Reason Onset Date Comments Appointment Request 02/16/2024 Encounter Details Date Type Department Care Team ([facility] Contact Info) Description 02/16/2024 Telephone [facility] [address] [place], [place] [phone] Reyna Garrido MD [address] [place], [place] [phone] Appointment Request Social History Tobacco Use Types [...] from pt requesting transfer pt appt but job specification writer found no availability. Pt stated she has waited over 9 months for initial TP but due to insurance she wasn't able to attend. Please contact pt at [phone]. (Maori Speaker) documented in this encounter Plan of Treatment Upcoming Encounters Date Type Department Care Team (Late st Contact Info) Description 03/27/2025 12:45 PM EST Office Visit [facility] ADULT [facility] [address] [place] [address] Ginette Florez documented as of this encounter Visit Diagnoses Not on filedocumented in this encounter Care Teams Post Partum Nurse Relationship Specialty Start Date End Date Reyna Garrido MD [address] [place] [address] PCP - General Internal Medicine 12/12/22 documented as of this encounter
--- OUTSIDE RECORDS SUMMARY | 2025-01-16 17:35 | XMS_ITS | Encounter Summary ---
Author Organization [employer] Address [address] [facility] [address] [place] [address] Care Team Providers Care Etched Circuit Processor Name Role Phone Reyna Garrido MD Primary Care Pro vider Reason for Visit * Reason Comments Med Refill Encounter Details Date Type Department Care Team (Late st Contact Info) Description 09/09/2024 Refill [facility] [address] [place], [place] [phone] Adeline Lea, [address] [place], [place] [phone] Social History Tobacco Use Types Packs/Day Years [...] Description 03/27/2025 12:45 PM EST Office Visit [facility] ADULT D[facility] [address] [place] [address] Ginette Florez documented as of this encounter Visit Diagnoses Not on filedocumented in this encounter Additional Health Concerns Assessment Noted Time PHQ-9 Depression Total Score: 0 08/30/19 25 2:19 PM EDT documented as of this encounter Care Teams Etched Circuit Processor Relationship Specialty Start Date End Date Reyna Garrido MD [address] [place] [address] PCP - General Internal Medicine 12/12/22 documented as of this encounter
--- OUTSIDE RECORDS SUMMARY | 2025-01-16 17:35 | XMS_ITS | Clinical Summary ---
Author Organization [employer] Address [address] [place] [address] [address] [place] [address] Care Team Providers Care Security Technician Name Role Phone Reyna Garrido MD Primary Care Pro vider Allergies Active Allergy Reactions Criticality Noted Date Comments Mcgill Itching High 11/18/2020 Medications biotin 1 MG capsule Take by mouth. Active fexofenadine ODT (Lesa ODT) 30 MG disintegrating tablet Take 30 mg by mouth Once per day. Active hydrocortisone 1 % ointment Apply to affected area once daily x 7 days 28 g 10/16/19 25 Active fish oil-omega-3 fatty acids 1000 MG capsule Take 1 capsule (1 g) by mouth Once per day. 90 capsule 1 10/18/19 25 026 Active diphenhydrAMINE (BENADryl) 25 MG tabletIndications: Adverse effect of vaccine, initial encounter Take 1 tablet (25 mg) by mouth every 6 (six) hours if needed for itching. 30 tablet 10/23/19 25 Active lisinopril 10 MG tabletIndications: Essential hypertension TAKE 1 TABLET BY MOUTH EVERY MORNING 30 tablet 2 01/02/20 25 Active lisinopril 10 MG tabletIndications: Essential hypertension Take 1 tablet (10 mg) by mouth in the morning. 90 tablet 09/13/19 25 025 Discontinued nitrofurantoin, macrocrystal-monoh ydrate, (Macrobid) 100 MG capsuleIndications :UTI symptoms Take 1 capsule (100 mg) by mouth 2 times daily for 7 days. 14 capsule 12/11/19 25 025 Active Problems Problem Noted Date Diagnosed Date [...] Encounters Date Type Department Care Team Description 01/01/2025 Refill [facility] [address] [place] [phone] Reyna Garrido MD Essential hypertension 12/10/2024 10:40 AM EDT Office Visit [facility] [address] [place] [phone] Reyna Fairchild MD UTI symptoms 12/10/2024 Travel 10/22/2024 7:00 PM EDT Office Visit [facility] [address] [place] [phone] Reyna Fairchild MD Adverse effect of vaccine, initial encounter (Primary Dx); Cellulitis of other specified site 10/22/2024 Travel 10/21/2024 Orders Only [facility] [address] [place] [phone] Dov Harris CNM 10/21/2024 Results Follow-Up [address] [address] Dov Harris CNM Pap Smear 10/17/2024 9:30 AM EDT Office Visit [address] [address] Reyna Garrido MD Transaminitis (Primary Dx); Encounter for immunization; Health care maintenance; Overweight (BMI 25.0-29.9); Abnormal EKG; Essential hypertension; Prediabetes; Hyperlipidemia, unspecified hyperlipidemia type; Hypercalcemia 10/17/[address] [address] Reyna Garrido MD Lab Orders 10/17/2024 Travel 10/16/[address] [address] Reyna Garrido MD chart prep from Last 3 Months Immunizations Immunization Administration [...] Description 03/27/2025 12:45 PM EST Office Visit [facility] [address] [facility], [place] [phone] Ginette Florez Health Maintenance Due Date Last Done Comments CT Colonography 1970 Colonoscopy 1970 Colorectal Cancer Screening 1970 FIT DNA/Cologuard 1970 FIT 1970 FOBT 1970 Sigmoidoscopy 1970 Hepatitis B Vaccines (1 of 3 - 19+ 3-dose series) 1989 Zoster Vaccines (2 of 2) 01/13/2021 11/18/2020 Dental Oral Exam 08/20/2024 02/19/2024 Dental Prophylaxis 09/02/2024 03/04/2024 COVID-19 Vaccine (3 - 2024- season) 2024 09/22/2020, 08/24/2020 Influenza Vaccine (#1) 2024 Dental X-Ray: Bitewings 02/19/2025 02/19/2024, 01/12 Alcohol/Substance Use Screening 08/29/2025 08/29/2024 Depression Screening 08/29/2025 08/29/2024, 08/30/19 Disability Screening 08/29/2025 08/29/2024 Cervical Cancer Screening 10/15/2025 Diabetes: Hemoglobin A1C 10/15/2025 10/15/2024 HPV/Cotest 10/15/2025 10/15/2024, 10/28/2021 Pap Smear 10/15/2025 10/15/2024, 10/28/2021 SDOH Screening 10/15/2025 10/15/2024 Tobacco Screening 10/15/2025 10/15/2024 Mammogram 09/12/2026 09/12/2024, 06/23, 01/14/2021, Additional history exists Dental X-Ray: Full [...] Routine 12/10/2024 10:14 AM EDT UTI symptoms HPV DNA, LOW/HIGH RISK Routine 1:55 PM EDT PAP SMEAR Routine 10/15/2024 1:55 PM EDT Cervical cancer screening HEPATITIS C AB W/REFL TO HCV RNA, QN, PCR Routine 10/15/2024 1:07 PM EDT Annual physical exam HIV 1/2 ANTIGEN/ANTIBODY, FOURTH GENERATION W/RFL Routine 10/15/2024 1:07 PM EDT Annual physical exam HEMOGLOBIN A1C Routine 10/15/2024 1:07 PM EDT Annual physical exam LIPID PANEL, [...] EDT 12/10/2024 5:04 PM EDT Comment:UACC Narrative [facility] - 12/12/2024 8:48 AM EDT Urine Culture No growth. Specimen Source: Urine clean catch Reyna Lyman MD LAB MICROBIOLOGY - [facility] ORDERABLES Final Result [facility] [address] [place] [phone] * (ABNORMAL) POCT urinalysis dipstick manually [...] Detected Urine 12/10/2024 10:1 4 AM EDT us Reyna Lyman MD POINT OF CARE TEST EN TER/EDIT ORDERABLES Final Result * HPV DNA, Low/High Risk (10/15/2024 1:55 PM EDT) HPV High Risk Negative Negative [facility] HPV Genotype 16 Negative Negative [facility] HPV Genotype 18 Negative Negative [facility] Comment:HPV testing performe d at [facility] (CLIA#[id number]), [address] [place], [place] [id number].Testing for HPV was performed using the Daksha [...] Dov Harris CNM LAB BLOOD ORDERABLES Jo-Ann shine Result [facility] [address] [place] [phone] * Pap Smear (10/15/2024 1:55 PM EDT) Swab Cervix uteri structure / Unknown 10/15/2024 1:55 PM EDT 10/16/2024 8:15 AM EDT Narrative [facility] - 10/21/2024 12:44 PM EDT ----- ------- Name: Dolly Urena Age/Sex: 54/F : 1970 Unit#: [id number] Attend Dr: DOV HARRIS CNM Re10/15/24 Status: DEP [facility]F [facility] Disch: ----- ------- SPEC : [id number] RECD: 10/16/24 STATUS: VIOLET MACKEY NUM: [id number] FARHAN: 10/15/[address] [facility] [address]: DOV HARRIS CNM ENTERED: 10/16/24 SP TYPE: Pap Smr [facility] DR: ORDERED: Pap Smear Interpretation [...] and HPV testing will be performed at [facility] (CLIA #[id number]), [address] [place] [address]. Testing for HPV was performed using the Daksha SURJIT 6800 system. The presence of HPV in the [...] detected. All professional services are performed by [facility] ([address] [place] [address], [place] [address]; ; CLIA #[id number]). The PAP Test is a screening procedure with the inherent possibility of both false negative and false positive results. Results should be interpreted in the context of historic and current clinical findings. Reliability of the PAP Test is enhanced by performing the test on a regular repetitive basis. CONTINUED ON NEXT PAGE ----- ------- Name: Dolly Urena Age/Sex: 54/F : 1970 Unit#: [id number] Attend Dr: DOV HARRIS CNM Re10/15/24 Status: DEP REF Location: [facility] Disch: ----- ------- SPEC : [id number] RECD: 10/16/24 STATUS: SOUT KEY NUM: [id number] FARHAN: 10/15/24-[address] [facility] [address]: DOV HARRIS [facility] ENTERED: 10/16/24 SP TYPE: Pap Natasha OBREGON DR: ORDERED: Pap Smear ----- ------- Signed (signature on file) SAMANTA Santamaria ([facility]) 10/21/24 1244 ----- ------- END OF REPORT Dov LIZARRAGA LAB CYTOLOGY ORDERABLES F inal Result [facility] [address] [place] [phone] * Hepatitis C Antibody with Reflex to HCV, RNA, Quantitative, Real-Time PCR (10/15/2024 1:07 PM EDT) Hepatitis C Antibody Nonreactive Nonreactive [facility] Comment:Antibodies to HCV no t detected; does not exclude early acuteHCV infection. Blood Venous blood specimen / Unknown 10/15/2024 1:07 PM EDT 10/15/2024 4:10 PM EDT Reyna Chavarria MD LAB BLOOD ORDERAB LES Final Result Performing Organization Address [facility]/ZIP Co de Phone Number [facility] [address] [place] [phone] * HIV-1/2 Antigen and Antibodies, Fourth Generation, with Reflexes (10/15/2024 1:07 PM EDT) HIV AB/AG Nonreactive Nonreactive [facility] Comment:HIV-1 p24 Ag and/or HIV-1/HIV-2 Ab not detected.A test result that is nonreactive does not exclude thepossibility of exposure to or infection with HIV-1 and/orHIV-2. Nonreactive results in this assay for individualswith prior exposure to HIV-1 and/or HIV-2 may be due toantigen and antibody levels that are below the limit ofdetection of this assay.The [employer] HIV Ag/Ab Combo assay result andsupplemental assay results should be interpreted inconjunction with the patient's clinical presentation,history and other laboratory results. If the results areinconsistent with clinical evidence, additional testing issuggested to confirm the result. Blood Venous blood specimen / Unknown 10/15/2024 1:07 PM EDT 10/15/2024 4:10 PM EDT us Reyna Chavarria MD LAB BLOOD ORDERAB LES Final Result Performing Organization Address [facility]/ZIP Co de Phone Number [facility] [address] [place] [address] [phone] * Hemoglobin A1c (10/15/2024 1:07 PM EDT) Hemoglobin A1c 5.7 <6.0 % [facility] Comment:Hemoglobin A1C Refer ence Range Adults: 4.8 - 6.0 % Non diabetic: < 6.0 % Goal: < 7.0 %Additional Action Suggested: > 8.0 %Note: Hemoglobin A1c results are invalid for patients with abnormal amounts of HbF. Blood transfusions may impact the HbA1c concentration in the patient sample. Estimated Average Glucose 117 mg/dL [facility] Comment:eAG = Estimated ave rage glucose which is %A1C expressed asaverage glucose, using the formula of the S7D-QzvtizbMuzxemp Glucose study (ADAG), Diabetes Care, Vol.31,#8,Aug. 2007 Blood Venous blood specimen / Unknown 10/15/2024 1:07 PM EDT 10/15/2024 4:10 PM EDT us Reyna Chavarria MD LAB BLOOD ORDERAB LES Final Result Performing Organization Address [facility]/ZIP Co de Phone Number [facility] [address] [place] [phone] [phone] * (ABNORMAL) Lipid Panel, Standard (10/15/2024 1:07 PM EDT) Triglycerides 70 <150 mg/dL [facility] Comment:Desirable Triglyceri de: less than 150 mg/dLBorderline High Triglyceride 150-199 mg/dLHigh Triglyceride: 200-499 mg/dLVery High Triglyceride: greater than or equal to 5OO mg/dL Cholesterol 216(H) <200 mg/dL [facility] Comment:Desirable Cholestero l: less than 200 mg/dLBorderline High Cholesterol: 200-239 mg/dLHigh Cholesterol: greater than 239 mg/dL LDL Cholesterol Calculated 140(H) <100 mg/dL [facility] Comment:Desirable LDL: less than 100 mg/dLNear Optimal/Above Optimal LDL: 110- 129 mg/dLBorderline High LDL: 130-159 mg/dLHigh LDL: 160-189 mg/dLVery High LDL: greater than or equal to 190 mg/dL HDL Cholesterol 62 >40 mg/dL [facility] Comment:Desirable HDL: great er than 40 mg/dL Note: This HDL assay may give artificially low results in patients with liver disease. Blood Venous blood specimen / Unknown 10/15/2024 1:07 PM EDT 10/15/2024 4:10 PM EDT Reyna Chavarria MD LAB BLOOD ORDERAB LES Final Result [facility] [address] [place] [phone] [phone] * BI Mammogram Screening Tomosynthesis Bilateral (09/12/2024 12:45 PM EDT) Anatomical Region Laterality Modality Breast Bilateral Mammography 09/12/2024 12:4 5 PM EDT Narrative 09/21/2024 11:54 AM EDT [facility] [address] [place] [address] Mammography Report Signed Patient: Dolly Urena MR#: [id number] : 1970 Acct:[id number] Age/Sex: 54 / F ADM Date: 09/12/24 Loc: [facility].MAMMO Attending Dr: Reyna Chavarria MD Ordering Physician: Reyna Garrido MD Re sults: 1Negative Date of Service: 09/12/24 Follow Up: 1 Year From Orig inal Mammogram Procedure(s): MM tomosynthesis screening BI Accession Number(s): [id number] cc: Reyna Garrido MD EXAMINATION: MM SCREENING [...] 09/21/24 1151 DD/ 1245 TD/TT: 09/12/24 1303 Survey Rodman: Procedure Note Donotuseinterpreter, Image - 09/21/2024 [facility] [address] [place] [address] Mammography Report Signed Patient: Dolly Urena#: [id number] : 1970Acct:[id number] Age/Sex: 54 / FADM Date: 09/12/24 Loc: HO.MAMMO Attending Dr: Reyna Chavarria MD Ordering Physician: Reyna Garrido sults: 1Negative Date of Service: 09/12/24Follow Up: 1 Year From Orig inal Mammogram Procedure(s): MM tomosynthesis screening BI Accession Number(s): [id number] cc: Reyna Garrido MD EXAMINATION: MM SCREENING [...] Lisa Garcia DO 09/21/2024 11:51 AM EDT RP Dictated By: Lisa Garcia DO Signed By: <Electronically signed by Lisa Garcia DO in OV> 09/21/24 1151 DD/ 1245 TD/TT: 09/12/24 1303 Survey Rodman: Reyna hCavarria MD IMG BI PROCEDURES Final Result from Last 3 Months or Most Recently Relevant to Health Maintenance Insurance [facility] * Guarantor: Dolly Urena Account Type Relation to Patient Date of Phone Billing Address Personal/Family Self [id number] Care Teams Security Technician Relationship Specialty Start Date End Date Reyna Garrido MD [address] [place] [address] [phone] PCP - General Internal Medicine 12/12/22
[2025-01-21 15:36] VITALS: BMI 26.9
--- NOTE | 2025-01-22 11:45 | P.CONAN_ITS ---
Documented by User: Yoana Macias NP 01/22/25 11:45 HPI - Anesthesia Eval Consult details Narrative: 54 yr old female for Upper Endoscopy and Colonoscopy [facility] Active Problems Active Problems: All Active Problems Epidermal inclusion cyst (Acute) Family History Family History Sister Pancreatic cancer Liver cancer Mother Colon cancer Surgical History Surgical History (Updated 01/23/25 @ 08:10 by Gloria Villanueva RN) Hx of appendectomy Hx of section Social History Social History Household Members: Other Unable to assess alcohol history related to: Unknown Patient Tobacco Use Status: Never used Tobacco Use of substances other than those prescribed or required for medical reasons: No Are you DNR?: No Advance Directives: No Advance Directives Information Provided: Yes Patient : No : No Poor oral hygiene: No Meds Allergies Allergy/AdvReac Type Severity Reaction Status Date / Time bernabe (CHERRIES) Allergy Unknown THROAT Verified 12/17/24 12:20 SWELLS plums and citrics Allergy Unknown Unknown Uncoded 12/17/24 12:20 pollen Allergy Unknown Unknown Uncoded 12/17/24 12:20 Home Medications ?Medication ?Instructions ?Recorded ?Confirmed ?Last Taken ?Type lisinopril 10 mg tablet 10 mg PO DAILY 01/18/2212/25 Unknown History Exam Height,Weight and Vital Signs: Height 5 ft 4 in Weight 71.214 kg Documented by User: Emery Conway MD 01/23/25 08:30 HPI - Anesthesia Eval Consult details Narrative: 54 yr old female for Colonoscopy [facility] Family History Family History Sister Pancreatic cancer Liver cancer Mother Colon cancer Family history of problems with anesthesia: No Surgical History Surgical History (Updated 01/23/25 @ 08:10 by Gloria Villanueva RN) Hx of appendectomy Hx of section History of Problems with Anesthesia: No Social History Social History Household Members: Other Unable to assess alcohol history related to: Unknown Patient Tobacco Use Status: Never used Tobacco Use of substances other than those prescribed or required for medical reasons: No Are you DNR?: No Advance Directives: No Advance Directives Information Provided: Yes Patient : No : No Poor oral hygiene: No Meds Allergies Allergy/AdvReac Type Severity Reaction Status Date / Time bernabe (CHERRIES) Allergy Unknown THROAT Verified 12/17/24 12:20 SWELLS plums and citrics Allergy Unknown Unknown Uncoded 12/17/24 12:20 pollen Allergy Unknown Unknown Uncoded 12/17/24 12:20 Home Medications ?Medication ?Instructions ?Recorded ?Confirmed ?Last Taken ?Type lisinopril 10 mg tablet 10 mg PO DAILY 01/18/2212/25 Unknown History Exam Airway Mallampati Class: II TM Dist: <=3cm Neck ROM: Full Loose/Missing/Broken Teeth: No Heart: ok Lungs: ok Assessment and Plan Assessment Anesthesia Assessment: Anesthesia Plan Discussed and Chart Reviewed Final Anesthetic Review Family History of Problems with Anesthesia: No History of Problems with Anesthesia: No NPO: Yes ASA Class: I Final Preanesthetic Review: No Changes in Pt Med Stat, Meds/Allgs Chart Reviewed, Consent Obtained/Reviewed and Anes Risks/Benef Reviewed Patient Risk: Low Procedure Risk: Low Anesthetic Plan Anesthetic Plan: MAC: and Agree w/ Assess. and Plan Disposition: Standard PACU
[2025-01-23 08:10] VITALS: BMI 26.9
[2025-01-23 08:15] VITALS: BP 142/91; PULSE 70; RESP 16; TEMP 37.1; O2SAT 97
[2025-01-23] MEDS: Lactated Ringers 1,000 ML 100 ML IVCONT (08:39)
--- NOTE | 2025-01-23 09:09 | MHC.SHP ---
Pre-Procedural Eval Section A - 24 Hr Update-Section A only Date of Service: 01/23/25 Section B - Complete if H&P > 30 days Chief Complaint: screening Details of Present Illness: Hx of section Family History Sister Pancreatic cancer Liver cancer Mother Colon cancer Present Medications: see Short Stay Collaborative assessment Allergies: Allergies Allergy/AdvReac Type Severity Reaction Status Date / Time bernabe (CHERRIES) Allergy Unknown THROAT Verified 12/17/24 12:20 SWELLS plums and citrics Allergy Unknown Unknown Uncoded 12/17/24 12:20 pollen Allergy Unknown Unknown Uncoded 12/17/24 12:20 Review of Systems Review of Systems Comment: Ten point ROS negative Exam Exam Comment: Gen appear: No acute distress HEENT: no icterus Chest: No overt resp distress Abd: soft, nontender, nondistended Psych: Stable affect, answering questions appropriately Neuro: A/Ox3 noted to move all extremities spontaneously Ext: no peripheral edema Plan Diagnosis/Plan: Unchanged I have reviewed the history and physical and performed a pertinent physical examination on my patient. No changes have occurred unless specified. Time Spent With Patient Time: Total time managing care of this patient today ____ minutes.
--- NOTE | 2025-01-23 09:33 | P.OPN-COLO_ITS ---
Colonoscopy Operative Note Operative Note Date of Service: 01/23/25 Narrative: Procedure: Colonoscopy Indication: Screening, fam hx of colon cancer Endoscopist: Loyda Frazier MD Anesthesia Provider: Dr Emery Conway Anesthesia type: MAC Instrument: Olympus [id number]-H190L Consent: Indication, risks vs benefits, and alternatives were discussed with the patient who gave written informed consent to proceed. EKG, pulse, pulse oximetry and blood pressure were monitored throughout the procedure. Please see anesthesia flowsheet. Procedure: The patient was brought to the procedure room and placed in the left lateral decubitus position. IV medications were administered by the anesthesia provider in attendance. A digital rectal exam was performed which was normal. A distal attachment cap was affixed to the tip of the colonoscope which was then inserted through the anus and advanced through the colon to the cecum at 70 cm,and terminal ileum. Appendiceal orifice and ileocecal valve were identified. Mucosa was carefully examined under high definition white light as the instrument was slowly withdrawn in a retrograde panoramic fashion. Retroflexion was performed in rectum. The procedure was not difficult. There were no immediate obvious complications. The quality of the prep was BBPS: 3+3+3 = adequate Withdrawal time 11 minutes. Limitations: No limitations. Findings: Mucosa: Normal to cecum and terminal ileum. Protruding lesions: * 3 sessile polyps of size 2-4 mm in ascending colon. Cold snare polypectomy was performed. The polyps were completely removed and retrieved. * Large internal hemorrhoids without stigmata of recent bleeding. Excavated lesions: * Medium diverticulosis of sigmoid colon. Impression: 1. Normal colon mucosa 2. Total of 3 polyps removed 3. Diverticulosis 4. Internal hemorrhoids Recommendations: - Follow path results. - Repeat colonoscopy in 3-5 years contingent on path.
[2025-01-23 09:37] VITALS: BP 89/57; PULSE 73; RESP 16; TEMP 36.9; O2SAT 98
[2025-01-23 09:42] VITALS: BP 95/55; O2SAT 98
[2025-01-23 09:47] VITALS: BP 105/60
[2025-01-23 09:52] VITALS: BP 117/81; PULSE 67; RESP 14; O2SAT 98
[2025-01-23 10:03] VITALS: BP 132/81; PULSE 63; RESP 14; TEMP 36.4; O2SAT 99
== END 2025-01-23 10:46 | disposition home or self-care (01) ==
PROVIDERS: PCP Student in an Organized Health Care Education/Training Program; Visit Provider Internal Medicine
PROC: 0DJD8ZZ Inspection of Lower Intestinal Tract, Via Natural or Artificial Opening Endoscopic (ICD-10-PCS; CPT 45378; principal; 2025-01-23 09:20)
DX: Z12.11 Encounter for screening for malignant neoplasm of colon (principal); K63.5 Polyp of colon; K57.30 Diverticulosis of large intestine without perforation or abscess without bleeding; K64.8 Other hemorrhoids; Z80.0 Family history of malignant neoplasm of digestive organs
CPT/HCPCS: 45385; 88305; J0168; J2003; J2704

== ENCOUNTER → 2025-01-23 07:25 | Outpatient (BNV) | payer BC, SELFPAY | PROVIDERS: PCP Student in an Organized Health Care Education/Training Program; Visit Provider Internal Medicine | DX: Z12.11 Encounter for screening for malignant neoplasm of colon (principal); D12.2 Benign neoplasm of ascending colon; K57.30 Diverticulosis of large intestine without perforation or abscess without bleeding; K64.8 Other hemorrhoids | CPT/HCPCS: 45385 ==